=== PATIENT | female | born 1985 | race Caucasian/White ===

== ENCOUNTER 2019-12-10 22:44 | Inpatient (IN) | payer SELFPAY ==
--- NOTE | ~2019-12-10 | XR_ITS ---
EXAMINATION: XR chest 1V portable EXAM DATE: 12/11/2019 00:00 INDICATION: Weakness. TECHNIQUE: Portable AP frontal chest x-ray was obtained. There is no prior study for comparison. FINDINGS: The lungs are clear. There are no pleural effusions. The cardiomediastinal silhouette is within normal limits. There is no pneumothorax suspected. The bones and soft tissues are unremarkab le. IMPRESSION: No acute cardiopulmonary findings. Reviewed, dictated and finalized at location A.
--- NOTE | ~2019-12-10 | CT_ITS ---
EXAMINATION: CT brain wo con, CT cervical spine wo con EXAM DATE: 12/11/2019 02:20 INDICATION: Fall, head injury. TECHNIQUE: Spiral CT of the head was performed without contrast. Axial, coronal and sagittal images were reviewed. Spiral CT of the cervical spine was performed without contrast. Axial images were rev iewed. Coronal and sagittal reformatted images were also reviewed. The dose-length product (DLP) fo r this examination was 605.33 (accession [id number]), 204.91 (accession [id number]) mGy-cm. The exposure was tailored according to patient size, and iterative reconstruction (ASIR) was used as additional dose reduction technique. There is no prior study for comparison. FINDINGS: HEAD CT: There is no acute intraparenchymal hemorrhage. No evidence of intraparenchymal brain mass l esion. No evidence of acute infarction. There is no mass effect or midline shift. There is no obstru ctive hydrocephalus suspected. There are no extra-axial collections. There are no acute calvarial f ractures. The orbits are unremarkable. Soft tissue is unremarkable. The visualized sinuses and mas toid air cells are well aerated. CERVICAL CT: There is no evidence of acute cervical fracture. The odontoid process is intact. Pre- dens space is normal. Prevertebral soft tissue is normal. There are no soft tissue abnormalities id entified. There is no disc space widening or traumatic vertebral body subluxation suspected. Verteb ral body and disc heights are well-maintained. A detailed level by level evaluation of spondylosis can be added as addendum if requested. IMPRESSION: 1. No acute intracranial findings or cervical fracture. Reviewed, dictated and finalized at location A. IMPRESSION: 1. No acute intracranial findings or cervical fracture.
[2019-12-10 22:45] VITALS: BP 123/94; PULSE 86; RESP 14; TEMP 36.3; O2SAT 99
[2019-12-10 22:59] VITALS: RESP 16
--- NOTE | 2019-12-10 23:06 | ECG_ITS ---
Measurements Intervals [place] Rate: 81 P: 58 DE: 168 QRS: 91 QRSD: 94 T: 0 QT: 403 QTc: 468 Interpretive Statements SINUS RHYTHM RIGHT AXIS DEVIATION BORDERLINE ST-T WAVE ABNORMALITY- DIFFUSE LEADS BORDERLINE ECG Electronically Signed On 12-11-2019 6:56:21 CDT by Kristian Terrell D.O.
[2019-12-10] MEDS: SODIUM CHLORIDE 0.9% IV 1,000 ML 999 ML IV CONT (23:19)
[2019-12-10] MEDS: ONDANSETRON INJ 4 MG/2 ML VIAL IV PUSH (23:20)
[2019-12-10 23:21] LABS: Basophils Percent Auto 0.7 % (0.2-1.2); Eosinophils Percent Auto 0.2 % (0-4.4); Hematocrit 41.1 % (37.0-47.0); Hemoglobin 14.1 g/dL (12.0-15.0); Immature Granulocyte Absolute 0.02 K/mm3 (0.00-0.031); Immature Granulocyte Percent A 0.4 % (0-0.5); Lymphocytes Absolute Auto 2.55 K/mm3 (0.9-3.2); Lymphocytes Percent Auto 46.9 % (18.3-44.2); Mean Corpuscular HGB Conc 34.3 g/dl (32-36); Mean Corpuscular Hemoglobin 31.8 pg (26-34); Mean Corpuscular Volume 92.8 fl (80-100); Mean Platelet Volume 9.8 fl (7.4-10.4); Monocytes Absolute Auto 0.5 K/mm3 (0.1-0.6); Monocytes Percent Auto 9.4 % (2.6-8.5); Neutrophils Absolute Auto 2.3 K/mm3 (1.3-6.7); Neutrophils Percent Auto 42.4 % (45.5-73.1); Platelet Count Result 370 k/mm3 (150-375); Red Blood Count 4.43 M/mm3 (4.2-5.4); Red Cell Distribution Width 14.9 % (11.5-14.5); White Blood Count 5.4 K/mm3 (4.5-10.0)
[2019-12-10 23:23] LABS: Glucose Point of Care 105 (65-105)
[2019-12-10 23:30] VITALS: RESP 16; O2SAT 99
[2019-12-10 23:30] LABS: Partial Thromboplastin Time 28.2 SECONDS (22.3-36.8); Prothrombin Time 12.7 Seconds (11.1-14.7)
[2019-12-10 23:33] LABS: Magnesium 2.4 mg/dL (1.6-2.3); Phosphorus 3.5 mg/dL (2.5-4.5)
--- NOTE | 2019-12-10 23:39 | PC.NURSE ---
Addendum entered by Leanna Lopez RN 12/10/19 23:44: Last drink was at 20:30 tonight. pt's sister states pt was also taking Kratom and ran out. Original Note: pt presents to ER with sister with c/o ETOH and SI. pt's sister states pt's left her 2 weeks ago and she has been drinking heavily since. pt's sister states yesterday pt was found out wandering in the rain and going through the gas station's dumpster. pt's sister states they called detox program but were unable to get pt in. states they have been trying to detox pt themselves at home by, giving her a few shots every couple of hours. pt's sister states pt ran out of alcohol at the house so she started drinking her perfumes and lotions. states pt was found unconscious yesterday at home by one of her friends. pt expresses SI with a plan to cut her wrist. denies hx of SI/HI. SI precautions implemented upon arrival. hematoma noted over L eye.
[2019-12-10 23:41] LABS: Acetaminophen < 10 ug/mL (10-30); Ammonia < 9 umol/L (9-30); Salicylate < 1.0 mg/dL (2-20)
[2019-12-10 23:43] LABS: Alveolar/Arterial O2 Gradient 24.8 mmHg; Base Excess ABG 2.3 mEq/l (+/-2.0); Fractional Inspired Oxygen 21 %; HCO3 ABG 25.4 mEq/l (22.0-26.0); Oxyhemoglobin 94.5 % THb (90.0-100.0); PCO2 ABG 34.6 mmHg (35.0-45.0); PO2 ABG 83.5 mmHg (80.0-100.0); PO2 FiO2 Ratio Arterial Blood 3.98 %; Total Hemoglobin 13.5 g/dL (12.0-18.0); pH ABG 7.483 (7.350-7.450)
[2019-12-10 23:43] LABS: Alanine Aminotransferase 18 U/L (4-35); Albumin Level 4.4 g/dL (3.5-5.1); Alkaline Phosphatase 85 U/L (38-126); Anion Gap 20.4 mmol/L (7-16); Aspartate Amino Transferase 60 U/L (14-36); Bilirubin,Total 0.5 mg/dL (0.2-1.3); Blood Urea Nitrogen 13 mg/dL (7-17); Calcium 8.1 mg/dL (8.4-10.2); Carbon Dioxide 25 mmol/L (22-30); Chloride 95 mmol/L (98-107); Creatine Kinase 363 U/L (30-135); Estimated CRCL calculation 36 ml/min; Estimated Glomerular Filt Rate 43; Glucose 113 mg/dL (65-105); Potassium 3.4 mmol/L (3.4-5.0); Sodium 137 mmol/L (137-145)
[2019-12-10 23:44] LABS: Device ROOM AIR; Modified Allen's Test Pass; Site Drawn RIGHT RADIAL
--- NOTE | 2019-12-10 23:47 | ED.ALCOHOL ---
HPI - Alcohol General Chief Complaint: Alcohol Stated Complaint: alcohol,no intake, weak Time Seen by Provider: 12/10/19 23:06 Source: patient and family Mode of arrival: ambulatory History of Present Illness HPI narrative: This patient is a 34 year old female who presents for evaluation of alcohol intoxication. PAtient's sister is at bedside providing history . She states patient is going through a divorce starting 2 years ago. Patient has started binging alcohol over the past week. They found patient passed out on the floor on Saturday from alcohol intoxication so they have been monitoring her. They were able to keep patient from drinking alcohol on Saturday. She started drinking alcohol again yesterday. This morning her sister caught her drinking bottles of perfume in order to get alcohol in her system. She reports she took all the alcohol out of her place and then patient started trying to drink lotion. Her sister has been giving her alcohol in small amounts since noon to try to keep her controlled. Patient has been having nausea and vomiting but she denies any complaints currently . She does states that she wants to because she hates her herself. She has not history of depression or suicide attempt in the past. Her sister states she has not had anything to eat or drink in 5 days. Related Data Home Medications Medication Instructions Recorded Confirmed Unable to Obtain Home Medications 12/10/19 12/10/19 Allergies Allergy/AdvReac Type Severity Reaction Status Date / Time No Known Allergies Allergy Verified 12/10/19 23:58 Review of Systems Review of Systems: All systems reviewed & are unremarkable except as noted in HPI and below Constitutional: Constitutional: Denies chills, Denies fever(s) and Reports weakness Cardiovascular: Cardiovascular: Denies chest pain Respiratory: Respiratory: Denies cough, Denies dyspnea and Denies wheezing Gastrointestinal: Gastrointestinal: Denies abdominal pain, Reports nausea and Reports vomiting Neurologic: Denies headache(s) [facility] Past Medical History Medical History (Updated 12/11/19 @ 04:01 by Nikia Lai MD) Hypothyroid Social History Social History Smoking status: Never smoker Alcohol intake: current Substance use: never Gender identity (if verbalized by the patient): Female Exam Const: General: alert Nutritional Appearance: thin Orientation/consciousness: patient oriented x3 HENMT: Head: normocephalic and other (left periorbital ecchymosis) Face and sinus: face symmetric Mouth: Yes Normal oral and palatal mucosa present, Yes lip normal and Yes oropharynx normal Throat: posterior oropharynx normal, tonsils normal and uvula midline Eyes: Pupils: Equal, round and reactive pupils present EOM: EOMs intact bilaterally Chest: Chest palpation & inspection: normal inspection of the chest Resp: Effort & Inspection: normal respiratory effort and no retractions Auscultation: clear to auscultation bilaterally Cardio: Rate: regular rate Rhythm: regular rhythm Heart sounds: no murmurs GI: GI Palp: Yes Soft to palpation, No Tenderness to palpation present (GI), No Guarding due to palpation present (GI) and No Rigid due to palpation Skin: General skin exam: normal color Rashes: no rashes Neuro: General: patient oriented x3 and moves all extremities Course Reevaluation(s) Reevaluation #1: Patient has continued to have nausea and dry heaves. She is becoming agitated and wanted to get out of bed. She is stating I need to get to the vodka. Will give some ativan. Date: 12/11/19 Time: 03:58 Consultations Consultation #1: I Discussed case with DR. Tan who accepts patient and I discussed with DR. Marcus who accepts to ICU due to suicidal ideations Date: 12/11/19 Time: 03:30 Vital Signs Vital signs: Vital Signs Temperature 97.4 F L 12/10/19 22:45 Pulse Rate 86 12/10/19 22:45 Respiratory Rate 14 12/10/19 22:45 Bl
--- NOTE | 2019-12-10 23:52 | PC.NURSE ---
Called Carley (pharmacist) at poison control at this time.
[2019-12-10 23:54] LABS: Ethanol 409 mg/dL (<10)
[2019-12-11] VITALS (15 sets, daily range): BP systolic 105–136; BP diastolic 67–95; PULSE 60–92; RESP 15–28; TEMP 36.8–37.1; O2SAT 95–100; BMI 20.1
[2019-12-11 00:02] LABS: Add Urine Microscopic? NO; Appearance Urine Clear (Clear); Bilirubin Urine Negative (Negative); Blood Urine Negative (Negative); Color Urine Yellow (Yellow); Glucose Urine UA Negative (Negative); Ketones Urine Negative (Negative); Leukocyte Esterase Ur Negative LEU/UL (Negative); Nitrate Urine Negative (Negative); Protein Urine Negative (Negative); Urobilinogen Urine Negative mg/dL (<2.0)
[2019-12-11 00:04] LABS: Amphetamine Screen Urine Negative (Negative); Barbiturate Screen Urine Negative (Negative); Benzodiazepines Screen Urine Positive (Negative); Cannabinoid Screen Urine Negative (Negative); Cocaine Screen Urine Negative (Negative); Methadone Screen Urine Negative (Negative); Opiate Screen Urine Negative (Negative); Phencyclidine Screen Urine Negative (Negative)
[2019-12-11 01:09] LABS: Free T4 Free Thyroxine Reflex < 0.07 ng/dL (0.78-2.19)
[2019-12-11] MEDS: ONDANSETRON INJ 4 MG/2 ML VIAL IV PUSH ×2 (01:19→08:23)
[2019-12-11] MEDS: THIAMINE HCL 200 MG/2 ML VIAL 100 MG IV PUSH ×2 (01:20→08:23)
--- NOTE | 2019-12-11 01:29 | PC.NURSE ---
pt continues to rest on stretcher with sister at bedside. pt denies any needs/concerns. c/o nausea-medicated as stated per JUL. sitter remains at bedside, will continue to monitor pt for baseline status changes.
[2019-12-11] MEDS: PROMETHAZINE HCL 25 MG/ML AMPUL 12.5 MG IV PUSH (02:02)
[2019-12-11] MEDS: SODIUM CHLORIDE 0.9% IV 50 ML 150 ML (02:06)
--- NOTE | 2019-12-11 03:39 | PM.IMHP ---
H&P: HPI History of Present Illness Chief complaint: alcohol poisoning, suicidal ideation Narrative: This is a 34 year old female presented to the hospital with her sister axel with a history of alcohol intoxication as well as intoxication of perfume with suicidal ideation. The patient just underwent a divorce with her and has been binge drinking since then. Apparently she fell into her shower and sustained a left black eye. her family found her passed out. This morning her sister caught her drinking bottles of perfume in order to get alcohol in her system. She reports she took all the alcohol out of her place and then patient started trying to drink lotion. Her sister also reports that the patient was going through her neighbors garbage trying to find alcohol. Associated symptoms axel include nausea and vomiting. The patient verbalized that she wants to because she hates herself. Apparently the patient has not been eating any food over the past 5 days. She is also known to have hypothyroidism following a thyroidectomy from thyroid cancer and has not been taking her levothyroxine for about 3 months now. On my encounter with the patient she is intoxicated and cannot reliably answer my questions. History is obtained from her sister who is present at bedside. Review of Systems Review of Systems: ROS unobtainable: Yes unobtainable due to medical condition and unobtainable due to mental status PMFSH Past Medical History Medical History (Updated 12/11/19 @ 03:56 by Lucius Foley MD) Hypothyroid Social History Social History Gender identity (if verbalized by the patient): Female Meds Home Medications and Allergies Home Medications Medication Instructions Recorded Confirmed Type Unable to Obtain Home Medications 12/10/19 12/10/19 History Allergies Allergy/AdvReac Type Severity Reaction Status Date / Time No Known Allergies Allergy Verified 12/10/19 23:58 Vital Signs Vital Signs - 24 hr 12/10/19 22:45 12/10/19 22:59 12/10/19 23:30 Temperature 36.3 C L Pulse Rate 86 Respiratory Rate 14 16 16 Blood Pressure 123/94 H Pulse Oximetry 99 99 12/11/19 01:00 12/11/19 03:14 Temperature Pulse Rate 85 84 Respiratory Rate 16 15 Blood Pressure 121/93 H 124/90 Pulse Oximetry 97 97 Exam Const: General: confusion, intoxicated appearing, patient obtunded and tired appearing Nutritional Appearance: thin Orientation/consciousness: No oriented to person, No oriented to place, No oriented to time and patient obtunded HENMT: Head: other (ecchymosis around left eye++ ) General nose exam: Normal external nose present Mouth: Yes Normal oral and palatal mucosa present and Yes oropharynx normal Eyes: Pupils: Equal, round and reactive pupils present Neck: Neck: supple and no JVD Lymphatic: lymphadenopathy not noted Resp: Effort & Inspection: normal respiratory effort Auscultation: clear to auscultation bilaterally Cardio: Rate: regular rate Rhythm: regular rhythm Heart sounds: no murmurs GI: Inspection: normal to inspection Auscultation: normal bowel sounds Skin: General skin exam: normal color and ecchymosis (brusing noted on lower extremities++ ) Neuro: Cranial nerves: Yes Equal, round and reactive pupils present Speech: Abnormal speech present slurred Extrem: General: normal to inspection and no edema H&P: Results Labs Labs: Short CBC 12/10/19 Range/Units 23:10 WBC 5.4 (4.5-10.0) K/mm3 Hgb 14.1 (12.0-15.0) g/dL Hct 41.1 (37.0-47.0) % Plt Count 370 (150-375) k/mm3 BMP 12/10/19 23:17 Sodium 137 Potassium 3.4 Chloride 95 L Carbon Dioxide 25 BUN 13 Creatinine 1.40 H Glucose 113 H Calcium 8.1 L Cardiac Enzymes 12/10/19 Range/Units 23:17 Total Creatine Kinase 363 H (30-135) U/L Liver Function 12/10/19 Range/Units 23:17 Total Bilirubin 0.5 (0.2-1.3) mg/dL AST 60 H (14-36) U/L ALT 18
--- NOTE | 2019-12-11 04:00 | ADMGEN ---
This patient, Anastasia Card, was admitted to Intensive Care Unit-10. Patient/family oriented to hospital policies and general routines including ID bracelet, bed and alarms, visiting hours, pain management, procedures, bathroom and other care routines, personal items, smoking policy, room service/diet, and visiting hours. Valuables list has been completed. Information on how to activate the Rapid Response Team has been discussed. Patient/Family are encouraged to report perceived risks to care and to ask questions if they do not understand what they are told or what they should do.
--- NOTE | 2019-12-11 04:53 | PC.NURSE ---
Pt states she does not take any prescription medications despite the long medication list in the external medication application.
[2019-12-11] MEDS: LEVOTHYROXINE SODIUM INJ 100 MCG/5 ML VIAL 37 MCG IV PUSH (05:04)
[2019-12-11] MEDS: SODIUM CHLORIDE 0.9% IV 1,000 ML 125 ML IV CONT ×3 (05:16→21:18)
[2019-12-11 07:00] LABS: Glucose Point of Care 101 (65-105)
[2019-12-11 07:42] LABS: Glucose Point of Care 85 (65-105)
[2019-12-11] MEDS: PANTOPRAZOLE SODIUM IV 40 MG VIAL IV PUSH (08:23)
[2019-12-11] MEDS: SODIUM CHLORIDE 0.9% IV 1,000 ML 999 ML IV CONT (11:27)
[2019-12-11] MEDS: GABAPENTIN 100 MG CAPSULE PO (11:28)
[2019-12-11] MEDS: GABAPENTIN 400 MG CAPSULE 800 MG PO ×3 (14:12→19:59)
--- NOTE | 2019-12-11 15:17 | WPDCNINT ---
Assessment and Plan Assessment and plan (1) Alcohol intoxication: Code(s): F10.929 - Alcohol use, unspecified with intoxication, unspecified Status: Acute Assessment and Plan: patient with acute alcoholic intoxication, with alcohol levels of 409 - salicylate, acetaminophen levels were normal. Urine tox screen was positive for benzodiazepines - patient was binge drinking since her divorce, adjusted to cover her alcohol so if patient started drink perfumes and lotions for alcohol. - Currently on CIWA protocol, p.r.n. Ativan, and thiamine - will monitor closely for alcohol withdrawal - poison Control has been notified (2) Acute encephalopathy: Code(s): G93.40 - Encephalopathy, unspecified Status: Acute Assessment and Plan: encephalopathy has resolved, patient more awake, alert, answers to questions appropriately - continue to monitor (3) Suicidal ideation: Code(s): R45.851 - Suicidal ideations Status: Acute Assessment and Plan: according to the hospitalist note she did verbalize that she wants to , she denied suicidal behavior/ideation for me - once medically stable, will have care coordination and crisis management evaluate the patient for placement in a psychiatric unit (4) Hypothyroidism: Code(s): E03.9 - Hypothyroidism, unspecified Status: Acute Assessment and Plan: patient with history of hypothyroidism - will continue levothyroxine p.o. (5) Acute renal failure: Qualifiers: Acute renal failure type: unspecified Qualified Code(s): N17.9 - Acute kidney failure, unspecified Code(s): N17.9 - Acute kidney failure, unspecified Status: Acute Assessment and Plan: acute kidney injury with elevation in creatinine, likely secondary to poor p.o. intake - continue monitor urine output, renal function electrolytes (6) High anion gap metabolic acidosis: Code(s): E87.2 - Acidosis Status: Acute Assessment and Plan: elevated anion gap metabolic acidosis likely related to alcohol versus possible uremia secondary to ALESHA - continue to monitor Additional Plan discussed with patient in details, she requests gabapentin which was ordered, also wants to go home which I did tell her that care coordination and crisis management will evaluate her when she is more stable and they will communicate with her regarding going home or placement in a psychiatric facility Code status: Full code critical care time spent: 39 minutes Due to a high probability of clinically significant, life threatening deterioration, the patient required my highest level of preparedness to intervene emergently and I personally spent this critical care time directly and personally managing the patient. This critical care time included obtaining a history; examining the patient; pulse oximetry; ordering and review of studies; arranging urgent treatment with development of a management plan; evaluation of patient's response to treatment; frequent reassessment; and discussions with other providers. It was exclusive of separately billable procedures and treating other patients and teaching time. Please see Assessment and Plan section and the rest of the note for further information on patient assessment and treatment Cotton Grader Consult Note Consult date: 12/11/19 Time Seen: 07:14 Reason for consult: alcohol intoxication/ poisoning, suicide intent/ideation HPI: Anastasia Card is a 34 year old female with significant past medical history of bipolar disease, hypothyroidism, restless leg syndrome, peripheral neuropathy presented to the ED after she was brought in by his sister for alcohol intoxication as well as drinking perfume and lotion with suicidal ideation/ attempt. Patient has been on distress as she recently got . She has been binge drinking since then. She insulin has not been taking her medications as prescribed. Patient was als
[2019-12-11 16:29] LABS: Glucose Point of Care 89 (65-105)
[2019-12-12] VITALS (7 sets, daily range): BP systolic 114–151; BP diastolic 58–98; PULSE 60–84; RESP 12–20; TEMP 36.7–37.1; O2SAT 98–100
[2019-12-12 04:11] LABS: Basophils Percent Auto 0.8 % (0.2-1.2); Eosinophils Percent Auto 0.4 % (0-4.4); Hematocrit 29.5 % (37.0-47.0); Immature Granulocyte Absolute 0.02 K/mm3 (0.00-0.031); Immature Granulocyte Percent A 0.4 % (0-0.5); Lymphocytes Absolute Auto 1.89 K/mm3 (0.9-3.2); Lymphocytes Percent Auto 35.8 % (18.3-44.2); Mean Corpuscular HGB Conc 33.9 g/dl (32-36); Mean Corpuscular Hemoglobin 32.5 pg (26-34); Mean Corpuscular Volume 95.8 fl (80-100); Monocytes Absolute Auto 0.7 K/mm3 (0.1-0.6); Monocytes Percent Auto 12.3 % (2.6-8.5); Neutrophils Absolute Auto 2.7 K/mm3 (1.3-6.7); Neutrophils Percent Auto 50.3 % (45.5-73.1); Platelet Count Result 227 k/mm3 (150-375); Red Blood Count 3.08 M/mm3 (4.2-5.4); Red Cell Distribution Width 15.2 % (11.5-14.5); White Blood Count 5.3 K/mm3 (4.5-10.0)
[2019-12-12 04:30] LABS: Lactic Acid 1.1 mmol/L (0.7-2.1)
[2019-12-12 04:33] LABS: Alanine Aminotransferase 18 U/L (4-35); Alkaline Phosphatase 52 U/L (38-126); Anion Gap 7.1 mmol/L (7-16); Aspartate Amino Transferase 46 U/L (14-36); Bilirubin,Total 0.4 mg/dL (0.2-1.3); Blood Urea Nitrogen 12 mg/dL (7-17); Carbon Dioxide 28 mmol/L (22-30); Chloride 102 mmol/L (98-107); Estimated CRCL calculation 50 ml/min; Estimated Glomerular Filt Rate 51; Glucose 82 mg/dL (65-105); Magnesium 1.5 mg/dL (1.6-2.3); Phosphorus 2.4 mg/dL (2.5-4.5); Potassium 3.1 mmol/L (3.4-5.0); Sodium 134 mmol/L (137-145)
[2019-12-12] MEDS: SODIUM CHLORIDE 0.9% IV 1,000 ML 125 ML IV CONT (05:31)
[2019-12-12] MEDS: LEVOTHYROXINE SODIUM 75 MCG TABLET PO (05:34)
[2019-12-12] MEDS: diazePAM 5 MG TABLET 10 MG PO ×3 (08:37→16:34)
[2019-12-12] MEDS: PREGABALIN 75 MG CAPSULE PO ×2 (08:37→16:34)
[2019-12-12] MEDS: GABAPENTIN 400 MG CAPSULE 800 MG PO ×4 (08:37→22:14)
[2019-12-12] MEDS: THIAMINE HCL 100 MG TABLET PO (09:09)
[2019-12-12] MEDS: MAGNESIUM SULF 4 GM/WATER100ML 4 GM/100 ML BAG IVPB (09:09)
[2019-12-12] MEDS: POTASSIUM CHLORIDE 20 MEQ PACKET (FOR LIQUID) 40 MEQ PO ×2 (09:10→16:35)
[2019-12-12] MEDS: FOLIC ACID 1 MG TABLET PO (09:10)
[2019-12-12] MEDS: LEVOTHYROXINE SODIUM 25 MCG TABLET PO (09:10)
--- NOTE | 2019-12-12 09:35 | PC.NURSE ---
Spoke with [place] [facility], patient is clear from their standpoint
[2019-12-12 10:00] LABS: Ethanol < 10 mg/dL (<10)
[2019-12-12 10:10] LABS: Beta HCG Quantitative < 2.39 mIU/ML
--- NOTE | 2019-12-12 11:56 | WPDINTPN ---
Progress Note: A&P Assessment and Plan (1) Alcohol intoxication: Code(s): F10.929 - Alcohol use, unspecified with intoxication, unspecified Status: Acute Assessment and Plan: patient with acute alcoholic intoxication, with alcohol levels of 409 - salicylate, acetaminophen levels were normal. Urine tox screen was positive for benzodiazepines - patient was binge drinking since her divorce, When alcohol was taken away by her sister, patient started drink perfumes and lotions for alcohol. - Currently on CIWA protocol, p.r.n. Ativan, and thiamine And folate - will monitor closely for alcohol withdrawal. She has been requiring minimum Ativan. - poison Control has been notified with no specific recommendations. (2) Acute encephalopathy: Code(s): G93.40 - Encephalopathy, unspecified Status: Acute Assessment and Plan: encephalopathy has resolved, patient more awake, alert, answers to questions appropriately - continue to monitor (3) Suicidal ideation: Code(s): R45.851 - Suicidal ideations Status: Acute Assessment and Plan: according to the hospitalist note she did verbalize that she wants to , she denied suicidal behavior/ideation for me she is medically stable and clear to have care coordination and crisis management evaluate the patient for placement in a psychiatric unit (4) Hypothyroidism: Code(s): E03.9 - Hypothyroidism, unspecified Status: Acute Assessment and Plan: patient with history of hypothyroidism - will continue levothyroxine p.o. (5) Acute renal failure: Qualifiers: Acute renal failure type: unspecified Qualified Code(s): N17.9 - Acute kidney failure, unspecified Code(s): N17.9 - Acute kidney failure, unspecified Status: Acute Assessment and Plan: acute kidney injury with elevation in creatinine, likely secondary to poor p.o. intake - continue monitor urine output, renal function electrolytes renal parameters has improved now. stop IV fluids now. She has been eating well. Her diet has been advanced to regular diet. Will replace magnesium, potassium and phosphate today as the levels were low. (6) High anion gap metabolic acidosis: Code(s): E87.2 - Acidosis Status: Acute Assessment and Plan: elevated anion gap metabolic acidosis likely related to alcohol versus possible uremia secondary to ALESHA. It has resolved now. - continue to monitor Additional Plan I will resume her home medication which include pregabalin and Valium 10 mg 3 times a day. She is medically clear and stable and care coordination and crisis team will evaluate the patient for possible placement in a psych facility. She has been downgraded to floor status today. DVT prophylaxis with SCD boot GI prophylaxis not indicated Code status: Full code Subjective Date/time seen: 12/12/19 11:56 No significant overnight events were reported. Few of the blood pressure reading has been on the higher side. She has required 3 doses of 1 mg Ativan each for anxiety. Magnesium and phosphate was low today which has been repleted. Production was repeated as well. She is feeling much better now. She denied have any significant symptoms. Review of Systems Review of Systems: All systems reviewed & are unremarkable except as noted in HPI and below Exam Const: General: comfortable and no acute distress HENMT: Mouth: Yes moist mucous membranes Eyes: Sclera: sclerae normal Pupils: Equal, round and reactive pupils present Neck: Neck: supple and no JVD Resp: Effort & Inspection: normal respiratory effort Auscultation: clear to auscultation bilaterally Cardio: Rate: regular rate Rhythm: regular rhythm : Other: deferred Skin: Other: patient has a left black eye Neuro: Cranial nerves: Yes Equal, round and reactive pupils present Other: patient is awake
--- NOTE | 2019-12-12 15:55 | PM.IMPN ---
Progress Note: A&P Assessment and Plan (1) Acute encephalopathy: Code(s): G93.40 - Encephalopathy, unspecified Status: Acute Assessment and Plan: Secondary to alcohol intoxication. Admit to ICU, telemetry, NPO, Neurochecks. Drawer Maker, Dr. Marcus has been consulted by ER provider. 12/12/19 15:55 patient is a 34-year-old female with history of bipolar, major depression, hyperthyroid patient recently got never seen patient has been quite depressed and yesterday see became quite intoxicated start drinking perfume and lotions in an attempt to commit suicide, patient was brought to ER by her sister daytime alcohol level was 409, since then patient is being hydrate being monitor today patient was seen bods developer and patient clinically has improved and stable to be evaluate by crisis team for inpatient psychiatry care, patient was seen by crisis team has recommended the patient will benefit from inpatient psychiatry care pending acceptance from the psychiatry hospital, currently patient denies any complaint of chest pain shortness abdominal pain nausea or vomiting (2) Alcohol intoxication: Code(s): F10.929 - Alcohol use, unspecified with intoxication, unspecified Status: Acute Assessment and Plan: [facility] protocol. Thiamine IV daily. Lorazepam IV withdrawal prophylaxis. (3) Poisoning: Status: Acute Assessment and Plan: Acute poisoning from consumption of perfume and lotions. Poison control has been consulted. (4) Suicidal ideation: Code(s): R45.851 - Suicidal ideations Status: Acute Assessment and Plan: One on One sitter. harm precautions. Crisis intervention carolyn m. (5) Hypothyroidism: Code(s): E03.9 - Hypothyroidism, unspecified Status: Acute Assessment and Plan: Untreated hypothyroidism. Levothyroxine IV. (6) Acute renal failure: Qualifiers: Acute renal failure type: unspecified Qualified Code(s): N17.9 - Acute kidney failure, unspecified Code(s): N17.9 - Acute kidney failure, unspecified Status: Acute Assessment and Plan: Likely secondary to poor PO intake of fluids. IV hydration. Monitor renal function. Avoid nephrotoxic agents. Renally dose medications. (7) High anion gap metabolic acidosis: Code(s): E87.2 - Acidosis Status: Acute Assessment and Plan: May be secondary to alchoholism vs. acute renal failure. Monitor acid-base status. Continue IV hydration. Additional Plan I suspect the patient will likely need at least 2 nights of inpatient medical therapy for her acute encephalopathy, alcohol intoxication, and comorbid conditions listed above. I have spent over 34 minutes of critical care time with this patient tonight. Date of service was 12/11/2019 at 3 am. Subjective Date/time seen: 12/12/19 15:55 patient is a 34-year-old female with history of bipolar, major depression, hyperthyroid patient recently got never seen patient has been quite depressed and yesterday see became quite intoxicated start drinking perfume and lotions in an attempt to commit suicide, patient was brought to ER by her sister daytime alcohol level was 409, since then patient is being hydrate being monitor today patient was seen bods developer and patient clinically has improved and stable to be evaluate by crisis team for inpatient psychiatry care, patient was seen by crisis team has recommended the patient will benefit from inpatient psychiatry care pending acceptance from the psychiatry hospital, currently patient denies any complaint of chest pain shortness abdominal pain nausea or vomiting Review of Systems Review of Systems: All systems reviewed & are unremarkable except as noted in HPI and below Exam Const: General: no acute distress and uncomfortable Other: appears quite depressed HENMT: General nose exam: Normal nares present Mouth: Yes moist mucous membranes Eyes: Sclera:
--- NOTE | 2019-12-12 21:05 | PC.NURSE ---
Advised by laboratory that COVID test failed and will be rerun on 12/14/19. No need to re-swab patient.
[2019-12-13 03:09] VITALS: BP 126/96; PULSE 72; RESP 16; O2SAT 99
[2019-12-13 04:09] LABS: Hematocrit 32.4 % (37.0-47.0); Hemoglobin 10.9 g/dL (12.0-15.0); Mean Corpuscular HGB Conc 33.6 g/dl (32-36); Mean Corpuscular Hemoglobin 32.2 pg (26-34); Mean Corpuscular Volume 95.9 fl (80-100); Mean Platelet Volume 9.9 fl (7.4-10.4); Platelet Count Result 234 k/mm3 (150-375); Red Blood Count 3.38 M/mm3 (4.2-5.4); Red Cell Distribution Width 15.2 % (11.5-14.5); White Blood Count 5.9 K/mm3 (4.5-10.0)
[2019-12-13 04:27] LABS: Anion Gap 6.3 mmol/L (7-16); Blood Urea Nitrogen 11 mg/dL (7-17); Calcium 7.9 mg/dL (8.4-10.2); Carbon Dioxide 28 mmol/L (22-30); Chloride 101 mmol/L (98-107); Estimated CRCL calculation 62 ml/min; Estimated Glomerular Filt Rate > 60; Glucose 101 mg/dL (65-105); Phosphorus 2.2 mg/dL (2.5-4.5); Potassium 3.3 mmol/L (3.4-5.0); Sodium 132 mmol/L (137-145)
[2019-12-13] MEDS: LEVOTHYROXINE SODIUM 75 MCG TABLET PO (06:22)
[2019-12-13 08:00] VITALS: BP 126/86; BP 126/96; PULSE 64; PULSE 72; PULSE 84; RESP 16; TEMP 37; O2SAT 100; O2SAT 99
[2019-12-13] MEDS: PREGABALIN 75 MG CAPSULE PO ×2 (09:25→17:48)
[2019-12-13] MEDS: diazePAM 5 MG TABLET 10 MG PO ×3 (09:26→17:48)
[2019-12-13] MEDS: THIAMINE HCL 100 MG TABLET PO (09:27)
[2019-12-13] MEDS: GABAPENTIN 400 MG CAPSULE 800 MG PO ×4 (09:27→19:58)
[2019-12-13] MEDS: FOLIC ACID 1 MG TABLET PO (09:28)
[2019-12-13] MEDS: POTASSIUM CHLORIDE 20 MEQ TABLET 40 MEQ PO (09:29)
[2019-12-13 12:00] VITALS: BP 126/96; PULSE 64
--- NOTE | 2019-12-13 12:18 | PM.IMPN ---
Progress Note: A&P Assessment and Plan (1) Acute encephalopathy: Code(s): G93.40 - Encephalopathy, unspecified Status: Acute Assessment and Plan: Secondary to alcohol intoxication. Admit to ICU, telemetry, NPO, Neurochecks. Nuclear Test Technician, Dr. Marcus has been consulted by ER provider. 12/13/19 12:18 patient is a 34-year-old female with history of bipolar, major depression, hyperthyroid patient recently got never seen patient has been quite depressed and yesterday see became quite intoxicated start drinking perfume and lotions in an attempt to commit suicide, patient was brought to ER by her sister daytime alcohol level was 409, since then patient is being hydrate being monitor today patient was seen bobbin cleaner and patient clinically has improved and stable to be evaluate by crisis team for inpatient psychiatry care, patient was seen by crisis team has recommended the patient will benefit from inpatient psychiatry care pending acceptance from the psychiatry hospital, currently patient denies any complaint of chest pain shortness abdominal pain nausea or vomiting, patient has history of restless leg syndrome and complaint of pain in her legs. patient is on gabapentin and Lyrica. (2) Alcohol intoxication: Code(s): F10.929 - Alcohol use, unspecified with intoxication, unspecified Status: Acute Assessment and Plan: CIWY-MT protocol. Thiamine IV daily. Lorazepam IV withdrawal prophylaxis. (3) Poisoning: Status: Acute Assessment and Plan: Acute poisoning from consumption of perfume and lotions. Poison control has been consulted. (4) Suicidal ideation: Code(s): R45.851 - Suicidal ideations Status: Acute Assessment and Plan: One on One sitter. harm precautions. Crisis intervention carolyn m. (5) Hypothyroidism: Code(s): E03.9 - Hypothyroidism, unspecified Status: Acute Assessment and Plan: Untreated hypothyroidism. Levothyroxine IV. (6) Acute renal failure: Qualifiers: Acute renal failure type: unspecified Qualified Code(s): N17.9 - Acute kidney failure, unspecified Code(s): N17.9 - Acute kidney failure, unspecified Status: Acute Assessment and Plan: Likely secondary to poor PO intake of fluids. IV hydration. Monitor renal function. Avoid nephrotoxic agents. Renally dose medications. (7) High anion gap metabolic acidosis: Code(s): E87.2 - Acidosis Status: Acute Assessment and Plan: May be secondary to alchoholism vs. acute renal failure. Monitor acid-base status. Continue IV hydration. Additional Plan I suspect the patient will likely need at least 2 nights of inpatient medical therapy for her acute encephalopathy, alcohol intoxication, and comorbid conditions listed above. I have spent over 34 minutes of critical care time with this patient tonight. Date of service was 12/11/2019 at 3 am. Subjective Date/time seen: 12/13/19 12:18 patient is a 34-year-old female with history of bipolar, major depression, hyperthyroid patient recently got never seen patient has been quite depressed and yesterday see became quite intoxicated start drinking perfume and lotions in an attempt to commit suicide, patient was brought to ER by her sister daytime alcohol level was 409, since then patient is being hydrate being monitor today patient was seen bobbin cleaner and patient clinically has improved and stable to be evaluate by crisis team for inpatient psychiatry care, patient was seen by crisis team has recommended the patient will benefit from inpatient psychiatry care pending acceptance from the psychiatry hospital, currently patient denies any complaint of chest pain shortness abdominal pain nausea or vomiting, patient has history of restless leg syndrome and complaint of pain in her legs. patient is on gabapentin and Lyrica. Objective Data Vital Signs Vital Signs: Vital Signs - 24 hr
[2019-12-13 16:00] VITALS: BP 128/96; PULSE 72; RESP 18; TEMP 36.9; O2SAT 97
[2019-12-14] VITALS: BP 130/98; PULSE 86; RESP 14; TEMP 36.8; O2SAT 100
[2019-12-14 04:34] LABS: Hematocrit 32.5 % (37.0-47.0); Hemoglobin 10.8 g/dL (12.0-15.0); Mean Corpuscular HGB Conc 33.2 g/dl (32-36); Mean Corpuscular Volume 96.4 fl (80-100); Mean Platelet Volume 9.9 fl (7.4-10.4); Platelet Count Result 237 k/mm3 (150-375); Red Blood Count 3.37 M/mm3 (4.2-5.4); Red Cell Distribution Width 15.3 % (11.5-14.5); White Blood Count 5.1 K/mm3 (4.5-10.0)
[2019-12-14 04:54] LABS: Anion Gap 6.3 mmol/L (7-16); Blood Urea Nitrogen 9 mg/dL (7-17); Calcium 8.4 mg/dL (8.4-10.2); Carbon Dioxide 28 mmol/L (22-30); Chloride 103 mmol/L (98-107); Estimated CRCL calculation 68 ml/min; Estimated Glomerular Filt Rate > 60; Glucose 96 mg/dL (65-105); Magnesium 1.7 mg/dL (1.6-2.3); Phosphorus 3.6 mg/dL (2.5-4.5); Potassium 3.3 mmol/L (3.4-5.0); Sodium 134 mmol/L (137-145)
[2019-12-14] MEDS: LEVOTHYROXINE SODIUM 75 MCG TABLET PO (06:37)
[2019-12-14 08:00] VITALS: BP 128/102; PULSE 80; RESP 18; TEMP 36.7; O2SAT 100
[2019-12-14] MEDS: diazePAM 5 MG TABLET 10 MG PO ×3 (08:07→17:13)
[2019-12-14] MEDS: PREGABALIN 75 MG CAPSULE PO ×2 (08:07→17:13)
[2019-12-14] MEDS: FOLIC ACID 1 MG TABLET PO (08:08)
[2019-12-14] MEDS: GABAPENTIN 400 MG CAPSULE 800 MG PO ×3 (08:08→17:14)
[2019-12-14] MEDS: THIAMINE HCL 100 MG TABLET PO (08:08)
[2019-12-14] MEDS: POTASSIUM CHLORIDE 20 MEQ TABLET 40 MEQ PO (08:39)
[2019-12-14 12:00] LABS: SARS-CoV-2 RNA PCR Negative
[2019-12-14 12:00] LABS: SARS-CoV-2 RNA PCR Negative
[2019-12-14] MEDS: LIDOCAINE 5% PATCH 1 PATCH TRANSDERM ×2 (12:07)
--- NOTE | 2019-12-14 13:20 | PM.TDS ---
Transfer Discharge Sum: Prov Provider Date of admission: 12/11/19 10:10 Primary care physician: Talha Blount, Admitting clinician: Lucius Foley MD Consults: 12/11/19 03:20 Consult to Physician Routine Comment: Consulting Provider: Sen Marcus Reason for consultation: suicidal ideation Has provider been notified: Yes 12/11/19 04:01 Care Coordination Consult Routine Comment: Reason for Consult:: Abuse DS: Admitting Diagnosis Admitting Diagnosis Admitting Diagnosis: Encephalopathy, unspecified DS: Discharge Diagnosis Discharge Diagnosis (1) Suicidal ideation: Code(s): R45.851 - Suicidal ideations Status: Acute Assessment and Plan: Anastasia Card is a 34 year old female patient is a 34-year-old female with history of bipolar, major depression, hyperthyroid patient recently got never seen patient has been quite depressed and yesterday see became quite intoxicated start drinking perfume and lotions in an attempt to commit suicide, patient was brought to ER by her sister daytime alcohol level was 409, since then patient is being hydrate being monitor today patient was seen patent legal assistant and patient clinically has improved and stable to be evaluate by crisis team for inpatient psychiatry care, patient was seen by crisis team has recommended the patient will benefit from inpatient psychiatry care pending acceptance from the psychiatry hospital, currently patient denies any complaint of chest pain shortness abdominal pain nausea or vomiting, patient has history of restless leg syndrome and complaint of pain in her legs. patient is on gabapentin and Lyrica., patient was evaluated by crisis team and recommended inpatient psychiatry care, patient is been accepted is psychiatry hospital will transfer the patient today. Transfer Discharge Sum: Med Medications Active and Home Medications: Home Medications buprenorphine HCl [Belbuca] 150 mcg BUCCAL BID 12/11/19 [History Confirmed 12/11/19] diazepam 10 mg PO TID 12/11/19 [History Confirmed 12/11/19] gabapentin 800 mg PO QID 12/11/19 [History Confirmed 12/11/19] levothyroxine [Levoxyl] 25 mcg PO DAILY 12/11/19 [History Confirmed 12/11/19] levothyroxine [Levoxyl] 75 mcg PO DAILY 12/11/19 [History Confirmed 12/11/19] pregabalin 75 mg PO BID 12/11/19 [History Confirmed 12/11/19] Active Medications Diazepam (Valium Po) 10 mg PO TID [facility] Last Admin: 12/14/19 12:18 Dose: 10 mg Documented by: Folic Acid (Folic Acid) 1 mg PO DAILY [facility] Last Admin: 12/14/19 08:08 Dose: 1 mg Documented by: Gabapentin (Neurontin) 800 mg PO QID [facility] Last Admin: 12/14/19 12:18 Dose: 800 mg Documented by: Levothyroxine Sodium (Synthroid) 75 mcg PO DAILY@0630 [facility] Last Admin: 12/14/19 06:37 Dose: 75 mcg Documented by: Lidocaine (Lidoderm) 1 patch TRANSDERM DAILY [facility] Last Admin: 12/14/19 12:07 Dose: 1 patch Documented by: Lidocaine (Lidoderm) 1 patch TRANSDERM DAILY [facility] Last Admin: 12/14/19 12:07 Dose: 1 patch Documented by: Lorazepam (Ativan Inj) 1 mg IV PUSH Q4H PRN PRN Reason: Withdrawal Last Admin: 12/12/19 04:16 Dose: 1 mg Documented by: Ondansetron HCl (Zofran Inj) 4 mg IV PUSH Q4H PRN PRN Reason: Nausea Last Admin: 12/11/19 08:23 Dose: 4 mg Documented by: Pregabalin (Lyrica) 75 mg PO BID [facility] Last Admin: 12/14/19 08:07 Dose: 75 mg Documented by: Thiamine HCl (Vitamin B-1) 100 mg PO QAM [facility] Last Admin: 12/14/19 08:08 Dose: 100 mg Documented by: Transfer Discharge Sum: Hosp Hospital Course Hospital course: Anastasia Card is a 34 year old female patient is a 34-year-old female with history of bipolar, major depression, hyperthyroid patient recently got never seen patient has been quite depressed and yesterday see became quite intoxicated start drinking perfume and lotions in an attempt to commit suicide, patient was brought to ER by her sister daytime alcohol level was 409, sin
[2019-12-14 14:13] LABS: Free T4 Free Thyroxine Reflex 0.15 ng/dL (0.78-2.19)
--- NOTE | 2019-12-14 17:18 | PC.NURSE ---
[facility], dc instructions sent with all personal belongings set with open hearth laborer
== END 2019-12-14 17:25 | DRG 897 ==
LOC: ANHED 12-11 03:21 → ANHICU 12-11 03:32
PROVIDERS: Internal Medicine; Internal Medicine Critical Care Medicine; Admitting Provider Family Medicine; Emergency Provider General Practice; PCP Internal Medicine; Visit Provider Family Medicine
DX: F10.929 Alcohol use, unspecified with intoxication, unspecified (principal); G93.49 Other encephalopathy; N17.9 Acute kidney failure, unspecified; E87.2 Acidosis; R45.851 Suicidal ideations; Z20.828 Contact with and (suspected) exposure to other viral communicable diseases; Y90.8 Blood alcohol level of 240 mg/100 ml or more; E89.0 Postprocedural hypothyroidism; F31.9 Bipolar disorder, unspecified; G25.81 Restless legs syndrome; G62.9 Polyneuropathy, unspecified; S00.12XA Contusion of left eyelid and periocular area, initial encounter; W19.XXXA Unspecified fall, initial encounter; Z63.5 Disruption of family by separation and divorce; Z85.850 Personal history of malignant neoplasm of thyroid
CPT/HCPCS: 36415; 36600; 70450; 71045; 72125; 80048; 80053; 80307; 81003; 81025; 82140; 82533; 82550; 82805; 82948; 83605; 83735; 83930; 84100; 84439; 84443; 84702; 85025; 85027; 85610; 85730; 87635; 93005; 96361; 96374; 96375; 96376; 99285; A9270; C9113; C9803; G0378; J0131; J2060; J2405; J2550; J3411; J3475; J7030; U0003

== ENCOUNTER 2020-01-06 21:54 | Inpatient (IN) | payer SELFPAY ==
[2020-01-06 21:53] VITALS: BP 109/83; PULSE 128; RESP 29; O2SAT 100
--- NOTE | 2020-01-06 21:53 | PC.NURSE ---
pt is unable to answer questions, except to say no. pt answers no to knowing her name, birthdate, where she is at, or what happen. pt is able to yell in pain when a straight cath was done and when a iv was placed.
--- NOTE | 2020-01-06 22:00 | ECG_ITS ---
Measurements Intervals Bates Rate: 126 P: 54 PA: 120 QRS: 79 QRSD: 73 T: -20 QT: 283 QTc: 411 Interpretive Statements SINUS TACHYCARDIA DELAYED PRECORDIAL R/S TRANSITION NONSPECIFIC T-WAVE ABNORMALITY- INFERIOR LEADS ABNORMAL ECG Electronically Signed On 01-07-2020 7:30:55 CDT by Kristian Terrell D.O.
--- NOTE | 2020-01-06 22:28 | PC.NURSE ---
2220 Spoke with TONI Baker at [place] [facility]. She stated monitor for for GI symptoms, n/v/d. Most are alcohol based products. Supportive care, , anti-emetics if required. Trazedone may cause sleepyness. They will call back to check on patient status. Per pt family pt ingested an unknown amt of: Biore witch babs face Equate Medicated face wash Kb Jeanette beach blonde sea waves sea salt spray Raina Hydra fresh toner Nutrigena Pore refining toner Purell Hand assistant financial accountant Salon Care Developer for michelle CLean & clear deep cleansing toner Bath & Body works hand assistant financial accountant Myrna dish soap Bottle of body splash Trazedone prescribed 12/21/19, possible 15 taken today, unsure per family. Bag of bottles family brought in labeled with pt name & locked up.
[2020-01-06 22:37] LABS: Basophils Absolute Auto 0.1 K/mm3 (0.0-0.1); Basophils Percent Auto 0.3 % (0.2-1.2); Hematocrit 46.6 % (37.0-47.0); Hemoglobin 15.8 g/dL (12.0-15.0); Immature Granulocyte Absolute 0.11 K/mm3 (0.00-0.031); Immature Granulocyte Percent A 0.7 % (0-0.5); Lymphocytes Absolute Auto 0.78 K/mm3 (0.9-3.2); Lymphocytes Percent Auto 4.7 % (18.3-44.2); Mean Corpuscular HGB Conc 33.9 g/dl (32-36); Mean Corpuscular Hemoglobin 32.9 pg (26-34); Mean Corpuscular Volume 97.1 fl (80-100); Mean Platelet Volume 10.9 fl (7.4-10.4); Monocytes Absolute Auto 0.9 K/mm3 (0.1-0.6); Monocytes Percent Auto 5.3 % (2.6-8.5); Neutrophils Absolute Auto 14.7 K/mm3 (1.3-6.7); Platelet Count Result 368 k/mm3 (150-375); Red Cell Distribution Width 15.4 % (11.5-14.5); White Blood Count 16.5 K/mm3 (4.5-10.0)
[2020-01-06 22:43] LABS: Add Urine Microscopic? YES; Appearance Urine Clear (Clear); Bilirubin Urine Negative (Negative); Blood Urine Negative (Negative); Color Urine Yellow (Yellow); Glucose Urine UA Negative (Negative); Ketones Urine 2+ mg/dL (Negative); Leukocyte Esterase Ur Negative LEU/UL (Negative); Mucus Urine Rare /lpf; Nitrate Urine Negative (Negative); Protein Urine 2+ mg/dL (Negative); RBC Urine 0-2 /hpf (0-2); Specific Grav Ur 1.024 (1.001-1.035); Squamous Epithelial Cell Urine Occasional /hpf (Few); Urobilinogen Urine Negative mg/dL (<2.0)
[2020-01-06 22:45] LABS: Alanine Aminotransferase 58 U/L (4-35); Albumin Level 5.1 g/dL (3.5-5.1); Alkaline Phosphatase 102 U/L (38-126); Anion Gap 29 mmol/L (8-16); Aspartate Amino Transferase 101 U/L (14-36); Bilirubin,Total 0.3 mg/dL (0.2-1.3); Blood Urea Nitrogen 22 mg/dL (7-17); Calcium 8.7 mg/dL (8.4-10.2); Carbon Dioxide 13 mmol/L (22-30); Chloride 96 mmol/L (98-107); Estimated Glomerular Filt Rate 46; Glucose 98 mg/dL (65-105); Potassium 4.6 mmol/L (3.4-5.0); Sodium 138 mmol/L (137-145)
[2020-01-06 22:48] LABS: Ethanol 176 mg/dL (<10)
[2020-01-06 22:53] LABS: Amphetamine Screen Urine Negative (Negative); Barbiturate Screen Urine Negative (Negative); Benzodiazepines Screen Urine Positive (Negative); Cannabinoid Screen Urine Negative (Negative); Cocaine Screen Urine Negative (Negative); Methadone Screen Urine Negative (Negative); Opiate Screen Urine Negative (Negative); Phencyclidine Screen Urine Negative (Negative)
[2020-01-06] MEDS: SODIUM CHLORIDE 0.9% IV 1,000 ML 999 ML IV CONT (23:23)
--- NOTE | 2020-01-06 23:26 | PC.NURSE ---
pt sister arrived around 15 mins after patient. sister states patient was seen here in November for a similar issue. pt was admitted to our icu, pt sister states she had to stay with her while she was here because the patient tried to eat a butt wipe . per sister pt was then transferred to a psych facility, which she stayed at for a week and then went to a rehabilitation center within the same organization. per sister pt got home on Saturday, drank a bottle of perfume, bought some alcohol, which her son found and dumped out. per sister last night patient drank a bottle of luis dish soap.
[2020-01-07] VITALS (12 sets, daily range): BP systolic 95–132; BP diastolic 63–88; PULSE 84–145; RESP 16–25; TEMP 36.3–37.5; O2SAT 95–100; BMI 18.8
[2020-01-07] MEDS: SODIUM CHLORIDE 0.9% IV 1,000 ML 999 ML IV CONT (00:09)
[2020-01-07 01:05] LABS: Acetaminophen < 10 ug/mL (10-30)
[2020-01-07 01:09] LABS: Salicylate 25.8 mg/dL (2-20)
--- NOTE | 2020-01-07 01:21 | PC.NURSE ---
pt is awake and asking for a drink. pt is agitated and trying to remove her iv. pt is taking off cardiac leads, bandages, her armband and throwing them on the floors. pt is reoriented to place, time and situation.
--- NOTE | 2020-01-07 01:23 | ED.PSYCH ---
HPI - Psych General Chief Complaint: Psychiatric Symptoms Stated Complaint: si Time Seen by Provider: 01/06/20 22:26 History of Present Illness HPI Narrative: Patient is a 34-year-old female who presents ER with potential overdose. Patient just got alcohol rehab. She was at her home and was drinking. Hand technology engineer then also ingested a bunch of medications that contained salicylic acid including Neutrogena pore refining toner, cleaning clear deep cleaning toner, L'Oreal hydra fresh toner, and Kb Adelina bleach blond sea wave sea salt spray. Patient vomited at home. History obtained from patient's sister. Patient intoxicated. Not willing to talk at this time. Patient also ingest purell hand technology engineer and bath and bodyworks hand technology engineer. Related Data Home Medications Medication Instructions Recorded Confirmed buprenorphine HCl [Belbuca] 150 mcg BUCCAL BID 12/11/19 12/11/19 diazepam 10 mg PO TID 12/11/19 12/11/19 gabapentin 800 mg PO QID 12/11/19 12/11/19 levothyroxine [Levoxyl] 25 mcg PO DAILY 12/11/19 12/11/19 levothyroxine [Levoxyl] 75 mcg PO DAILY 12/11/19 12/11/19 pregabalin 75 mg PO BID 12/11/19 12/11/19 Allergies Allergy/AdvReac Type Severity Reaction Status Date / Time No Known Allergies Allergy Verified 12/10/19 23:58 Review of Systems Review of Systems: ROS unobtainable: Yes unobtainable due to medical condition PMFSH Past Medical History Medical History (Updated 01/07/20 @ 03:11 by Cesar Kim MD) Anxiety Hypothyroid Surgical History Surgical History (Updated 01/07/20 @ 03:08 by Cesar Kim MD) H/O: hysterectomy Family History Family History (Updated 01/07/20 @ 02:55 by Gabino Dejesus RN) Daughter Acute myocardial infarction Social History Social History Smoking status: Never smoker Alcohol intake: former Substance use: never Gender identity (if verbalized by the patient): Female Spiritual care concerns: No Exam Narrative: Exam Narrative: GENERAL: Disheveled/intoxicated-appearing, well-nourished, and in no acute distress. HEAD: Normocephalic, atraumatic. EYES: PERRL and EOMI. ENT: Mucous membranes moist. CHEST: Clear to auscultation. No respiratory distress. HEART: Tachycardic and regular. Normal peripheral pulses. ABDOMEN: Soft, nontender, nondistended. EXTREMITIES: Normal range of motion. No edema. SKIN: Warm, dry, no rash. NEURO: Awake alert, intoxicated, responds to noxious stimuli. Course Course Emergency Course: Patient now awake alert and oriented x3. She denies SI/HI however patient sister is stable and patient verbalized that she wanted to go to sleep and never wake up again. Admit to hospitalist. ICU consulted, will start bicarb drip. Vital Signs Vital signs: Vital Signs Pulse Rate 128 H 01/06/20 21:53 Respiratory Rate 29 H 01/06/20 21:53 Blood Pressure 109/83 01/06/20 21:53 Pulse Oximetry 100 01/06/20 21:53 Pulse Rate 123 H 01/07/20 01:40 Respiratory Rate 20 01/07/20 01:40 Blood Pressure 120/73 01/07/20 01:40 Pulse Oximetry 100 01/07/20 01:40 MDM - Psych Lab Data Result diagrams: 01/06/20 22:17 01/06/20 22:17 Labs: Lab Results 01/06/20 01/06/20 01/06/20 Range/Units 22:16 22:16 22:17 WBC 16.5 H (4.5-10.0) K/mm3 RBC 4.80 (4.2-5.4) M/mm3 Hgb 15.8 H D (12.0-15.0) g/dL Hct 46.6 (37.0-47.0) % MCV 97.1 (80-100) fl MCH 32.9 (26-34) pg MCHC 33.9 (32-36) g/dl RDW 15.4 H (11.5-14.5) % Plt Count 368 D (150-375) k/mm3 MPV 10.9 H (7.4-10.4) fl Immature Gran % (Auto) 0.7 H (0-0.5) % Neut % (Auto) 89.0 H (45.5-73.1) % Lymph % (Auto) 4.7 L (18.3-44.2) % [place] % (Auto) 5.3 (2.6-8.5) % Eos % (Auto) 0.0 (0-4.4) % Baso % (Auto) 0.3 (0.2-1.2) % Lymph # (Auto) 0.78 L (0.9-3.2) K/mm3 [place] # (Auto) 0.9 H (0.1-0.6) K/mm3 Eos # (Auto) 0.0 (0-0.3) K/mm3 Baso # (Auto) 0.1 (0.0-0.1) K/
[2020-01-07] MEDS: SODIUM BICARBONATE 8.4% 100 MEQ in DEXTROSE 5% 1,000 ML 1,000 ML 50 MEQ IV CONT (01:55)
--- NOTE | 2020-01-07 02:51 | PC.NURSE ---
This patient, Anastasia Card, was admitted to Intensive Care Unit-8. Patient/family oriented to hospital policies and general routines including ID bracelet, bed and alarms, visiting hours, pain management, procedures, bathroom and other care routines, personal items, smoking policy, room service/diet, and visiting hours. Valuables list has been completed. Information on how to activate the Rapid Response Team has been discussed. Patient/Family are encouraged to report perceived risks to care and to ask questions if they do not understand what they are told or what they should do.
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
--- NOTE | 2020-01-07 04:26 | PCRCNOTE ---
ABG WAS NOT DRAWN IN ED; TO BE DISCONTINUED PER DR FOSS.
[2020-01-07] MEDS: THIAMINE HCL 200 MG/2 ML VIAL 100 MG IV PUSH (04:42)
[2020-01-07] MEDS: LEVOTHYROXINE SODIUM 125 MCG TABLET PO (04:42)
[2020-01-07 05:06] LABS: Hematocrit 36.1 % (37.0-47.0); Hemoglobin 12.4 g/dL (12.0-15.0); Mean Corpuscular HGB Conc 34.3 g/dl (32-36); Mean Corpuscular Hemoglobin 32.7 pg (26-34); Mean Corpuscular Volume 95.3 fl (80-100); Mean Platelet Volume 11.3 fl (7.4-10.4); Platelet Count Result 276 k/mm3 (150-375); Red Blood Count 3.79 M/mm3 (4.2-5.4); Red Cell Distribution Width 15.1 % (11.5-14.5); White Blood Count 15.7 K/mm3 (4.5-10.0)
[2020-01-07 05:21] LABS: INR 1.2; Prothrombin Time 14.7 Seconds (11.1-14.7)
[2020-01-07 05:24] LABS: Alanine Aminotransferase 44 U/L (4-35); Albumin Level 3.7 g/dL (3.5-5.1); Alkaline Phosphatase 70 U/L (38-126); Anion Gap 10 mmol/L (8-16); Aspartate Amino Transferase 66 U/L (14-36); Bilirubin,Total 0.2 mg/dL (0.2-1.3); Blood Urea Nitrogen 22 mg/dL (7-17); Calcium 7.3 mg/dL (8.4-10.2); Carbon Dioxide 21 mmol/L (22-30); Chloride 100 mmol/L (98-107); Estimated CRCL calculation 56 ml/min; Estimated Glomerular Filt Rate > 60; Glucose 273 mg/dL (65-105); Potassium 4.5 mmol/L (3.4-5.0); Sodium 131 mmol/L (137-145)
[2020-01-07] MEDS: diazePAM 5 MG TABLET 10 MG PO ×3 (08:25→17:34)
[2020-01-07] MEDS: FOLIC ACID 1 MG TABLET PO (08:25)
[2020-01-07] MEDS: THIAMINE HCL 100 MG TABLET PO (08:25)
[2020-01-07] MEDS: PREGABALIN 75 MG CAPSULE PO ×2 (08:25→17:33)
[2020-01-07] MEDS: GABAPENTIN 400 MG CAPSULE 800 MG PO ×4 (08:28→21:18)
[2020-01-07] MEDS: OXcarbazepine 150 MG TABLET PO ×2 (08:29→17:33)
[2020-01-07] MEDS: LACTATED RINGERS 1,000 ML 999 ML IV CONT (08:37)
--- NOTE | 2020-01-07 09:16 | WPDCNINT ---
Assessment and Plan Assessment and plan (1) Overdose of salicylate: Code(s): T39.091A - Poisoning by salicylates, accidental (unintentional), initial encounter Status: Acute Assessment and Plan: patient presented with suicidal attempt /behavior Elliot she ingested multiple medication containing salicylic acid - initial salicylic acid levels were elevated, patient started on bicarb infusion - repeat salicylic acid levels have normalized - poison Control has been notified - continue bicarb infusion, will repeat another salicylic acid level later this afternoon (2) Suicidal ideations: Code(s): R45.851 - Suicidal ideations Status: Acute Assessment and Plan: patient presented with suicidal behavior, according the records patient's sister has a video recording with the patient states she was to commit suicide - once patient is medically stable will have crisis management and care coordination evaluate the patient - patient will require to placed in a psych facility (3) Alcoholism: Code(s): F10.20 - Alcohol dependence, uncomplicated Status: Acute Assessment and Plan: patient with history of alcoholism and continues to drink alcohol - continue diazepam - start patient on folic acid and thiamine - will watch for alcohol withdrawal (4) Hypothyroidism: Code(s): E03.9 - Hypothyroidism, unspecified Status: Acute Assessment and Plan: continue levothyroxine (5) Restless leg syndrome: Code(s): G25.81 - Restless legs syndrome Status: Acute Assessment and Plan: continue gabapentin and Lyrica (6) Bipolar disorder: Code(s): F31.9 - Bipolar disorder, unspecified Status: Acute Assessment and Plan: continue diazepam, Trileptal, trazodone (7) DVT prophylaxis: Code(s): Z29.9 - Encounter for prophylactic measures, unspecified Status: Acute Assessment and Plan: DVT prophylaxis: Lovenox SQ Additional Plan discussed with patient updated her with her condition and plan of care. Code status: Full code critical care time spent: 39 minutes Due to a high probability of clinically significant, life threatening deterioration, the patient required my highest level of preparedness to intervene emergently and I personally spent this critical care time directly and personally managing the patient. This critical care time included obtaining a history; examining the patient; pulse oximetry; ordering and review of studies; arranging urgent treatment with development of a management plan; evaluation of patient's response to treatment; frequent reassessment; and discussions with other providers. It was exclusive of separately billable procedures and treating other patients and teaching time. Please see Assessment and Plan section and the rest of the note for further information on patient assessment and treatment Publicity Writer Consult Note Consult date: 01/07/20 Time Seen: 06:59 Reason for consult: salicylate overdose, suicidal ideation, alcohol abuse HPI: Anastasia Card is a 34 year old female with past medical history of bipolar disease, hypothyroidism, restless leg syndrome, peripheral neuropathy, alcohol abuse, recently admitted to [facility] from 12/11/2019 to 12/14/2019 will she was admitted with suicide intent/ideation, alcohol intoxication and poisoning after drinking perfume and lotion. Patient was then transferred to a psychiatric facility from where she probably went home. Patient presented on 01/06/2020 again to the ER with suicidal ideation/ behavior. Patient was discharged home from a psych facility where she was getting alcohol rehab and started drinking again. She stated she did not have adequate alcohol socially started drink hand order packer, also ingested some medication that contained salicylic acid including Neutrogena pore refining toner, clear deep cleaning toner. Mireya cuellar fresh Kb loyd
[2020-01-07] MEDS: ENOXAPARIN 40 MG/0.4 ML SYRINGE SUB-Q (09:58)
[2020-01-07 12:10] LABS: Salicylate 11.4 mg/dL (2-20)
[2020-01-07] MEDS: chlordiazePOXIDE 25 MG CAPSULE PO (12:38)
--- NOTE | 2020-01-07 17:11 | PM.IMPN ---
Progress Note: A&P Assessment and Plan (1) Alcoholism: Code(s): F10.20 - Alcohol dependence, uncomplicated Status: Acute Assessment and Plan: CIWA scores q.4 hours with p.r.n. Ativan. with scheduled Valium 10 t.i.d. Thiamin supplementation (2) Suicidal ideations: Code(s): R45.851 - Suicidal ideations Status: Acute Assessment and Plan: dam attendant in place. Patient will need inpatient psychiatric treatment on discharge (3) Overdose of salicylate: Code(s): T39.091A - Poisoning by salicylates, accidental (unintentional), initial encounter Status: Acute Assessment and Plan: The patient was started on bike carb drip in the ER. and drip decreased today with CO2 rising to normal and salicylate level down to 11 (4) Acute renal failure: Qualifiers: Acute renal failure type: unspecified Qualified Code(s): N17.9 - Acute kidney failure, unspecified Code(s): N17.9 - Acute kidney failure, unspecified Status: Acute Assessment and Plan: Due to volume depletion intoxication. She received 2 L normal saline in the ER. creatinine down to 1.0 today and continue to follow. (5) Hypothyroidism: Code(s): E03.9 - Hypothyroidism, unspecified Status: Acute Assessment and Plan: The patient's hypothyroidism is uncontrolled likely due to noncompliance with medical therapy. TSH is still 18 but was 92 earlier in the month so will continue thyroid replacement as is (6) Bipolar disorder: Code(s): F31.9 - Bipolar disorder, unspecified Status: Acute Assessment and Plan: continue her trazodone ox carbamazepine and Valium (7) Elevated LFTs: Code(s): R79.89 - Other specified abnormal findings of blood chemistry Status: Acute Assessment and Plan: OT greater than ALT all thought to be secondary to ETOH and will follow serially (8) DVT prophylaxis: Code(s): Z29.9 - Encounter for prophylactic measures, unspecified Status: Acute Assessment and Plan: Lovenox Subjective Date/time seen: 01/07/20 17:11 Interval history: date of visit 01/06. 34-year-old alcoholic with bipolar disorder admitted with suicide ideation and ingestion of several alcohol-related products and salicylate. Hydrated with bicarb and feels somewhat better this a.m.. Just recently discharged from psych facility after similar presentation Exam Narrative: Exam Narrative: PHYSICAL EXAM: blood pressure 110/74 pulse is 110 respiration 24 per minute afebrile General: no acute distress, thin body habitus HEENT: mucous membranes are moist, no oral pharyngeal erythema, no scleral icterus, Respiratory: clear to auscultation bilaterally, Cardiovascular: sinus tachycardia, normal S1-S2, no murmur Gastrointestinal: soft, nontender, nondistended, positive bowel sounds Skin: no jaundice, Musculoskeletal: no edema Neurological: alert and oriented, speech is clear Psychiatric: depressed mood, anxious,, insight poor : defer Objective Data Vital Signs Vital Signs: Vital Signs - 24 hr 01/06/20 21:53 01/07/20 00:39 01/07/20 01:40 Temperature Pulse Rate 128 H 115 H 123 H Pulse Rate [Brachial] Respiratory Rate 29 H 20 20 Blood Pressure 109/83 114/70 120/73 Pulse Oximetry 100 100 100 01/07/20 03:59 01/07/20 04:00 01/07/20 04:48 Temperature 37.5 C Pulse Rate 126 H Pulse Rate [Brachial] 122 H 125 H 145 H Respiratory Rate 22 H Blood Pressure 129/88 Pulse Oximetry 100 01/07/20 06:00 01/07/20 08:00 01/07/20 10:00 Temperature 37.3 C Pulse Rate 107 H 111 H 100 Pulse Rate [Brachial] Respiratory Rate 16 18 Blood Pressure 132/64 95/63 L Pulse Oximetry 98 95 01/07/20 12:00 01/07/20 15:57 Temperature 36.9 C 36.3 C L Pulse Rate 106 H 112 H Pulse Rate [Brachial] Respiratory Rate 17 25 H Blood Pressure 122/86 111/75 Pulse Oximetry 98
[2020-01-07] MEDS: traZODone HCL 50 MG TABLET PO (21:18)
[2020-01-08 03:54] VITALS: BP 108/73; PULSE 90; RESP 16; TEMP 36.5; O2SAT 98
[2020-01-08 04:00] VITALS: PULSE 90
[2020-01-08] MEDS: ACETAMINOPHEN 325 MG TABLET 650 MG PO (05:11)
[2020-01-08] MEDS: LEVOTHYROXINE SODIUM 125 MCG TABLET PO (05:12)
[2020-01-08 05:14] LABS: Basophils Percent Auto 0.3 % (0.2-1.2); Eosinophils Percent Auto 0.3 % (0-4.4); Hematocrit 32.6 % (37.0-47.0); Hemoglobin 10.8 g/dL (12.0-15.0); Immature Granulocyte Absolute 0.07 K/mm3 (0.00-0.031); Immature Granulocyte Percent A 0.6 % (0-0.5); Lymphocytes Absolute Auto 2.35 K/mm3 (0.9-3.2); Lymphocytes Percent Auto 20.5 % (18.3-44.2); Mean Corpuscular HGB Conc 33.1 g/dl (32-36); Mean Corpuscular Volume 96.7 fl (80-100); Monocytes Percent Auto 8.3 % (2.6-8.5); Neutrophils Absolute Auto 8.1 K/mm3 (1.3-6.7); Platelet Count Result 213 k/mm3 (150-375); Red Blood Count 3.37 M/mm3 (4.2-5.4); Red Cell Distribution Width 15.1 % (11.5-14.5); White Blood Count 11.5 K/mm3 (4.5-10.0)
[2020-01-08 05:23] LABS: Alanine Aminotransferase 50 U/L (4-35); Albumin Level 3.5 g/dL (3.5-5.1); Alkaline Phosphatase 68 U/L (38-126); Anion Gap 2 mmol/L (8-16); Aspartate Amino Transferase 67 U/L (14-36); Bilirubin,Total 0.6 mg/dL (0.2-1.3); Blood Urea Nitrogen 19 mg/dL (7-17); Calcium 8.1 mg/dL (8.4-10.2); Carbon Dioxide 31 mmol/L (22-30); Chloride 102 mmol/L (98-107); Estimated CRCL calculation 65 ml/min; Estimated Glomerular Filt Rate > 60; Glucose 100 mg/dL (65-105); Potassium 3.1 mmol/L (3.4-5.0); Sodium 135 mmol/L (137-145)
[2020-01-08 08:00] VITALS: BP 112/75; PULSE 83; RESP 16; TEMP 36.9; O2SAT 100
[2020-01-08] MEDS: POTASSIUM CHLORIDE 20 MEQ TABLET 40 MEQ PO ×2 (08:55→17:18)
[2020-01-08] MEDS: diazePAM 5 MG TABLET 10 MG PO ×3 (08:55→17:18)
[2020-01-08] MEDS: ENOXAPARIN 40 MG/0.4 ML SYRINGE SUB-Q (08:56)
[2020-01-08] MEDS: GABAPENTIN 400 MG CAPSULE 800 MG PO ×4 (08:56→21:31)
[2020-01-08] MEDS: OXcarbazepine 150 MG TABLET PO ×2 (08:56→17:18)
[2020-01-08] MEDS: FOLIC ACID 1 MG TABLET PO (08:56)
[2020-01-08] MEDS: THIAMINE HCL 100 MG TABLET PO (08:57)
[2020-01-08] MEDS: PREGABALIN 75 MG CAPSULE PO ×2 (08:57→17:19)
--- NOTE | 2020-01-08 10:54 | PC.NURSE ---
[place] [facility]ISON [facility] CONTACTED. PATIENT'S CASE HAS BEEN CLOSED.
--- NOTE | 2020-01-08 11:34 | PM.IMPN ---
Progress Note: A&P Assessment and Plan (1) Alcoholism: Code(s): F10.20 - Alcohol dependence, uncomplicated Status: Acute Assessment and Plan: CIWA scores q.4 hours with p.r.n. Ativan. with scheduled Valium 10 t.i.d. Thiamin supplementation No signs of any withdrawal (2) Suicidal ideations: Code(s): R45.851 - Suicidal ideations Status: Acute Assessment and Plan: burn out tender lace in place. Patient will need inpatient psychiatric treatment on discharge (3) Overdose of salicylate: Code(s): T39.091A - Poisoning by salicylates, accidental (unintentional), initial encounter Status: Acute Assessment and Plan: The patient was started on bike carb drip in the ER. and drip stopped 01/06 with CO2 rising to normal and salicylate level down to 11 Patient is medically stable for inpatient psych or rehab facility (4) Acute renal failure: Qualifiers: Acute renal failure type: unspecified Qualified Code(s): N17.9 - Acute kidney failure, unspecified Code(s): N17.9 - Acute kidney failure, unspecified Status: Acute Assessment and Plan: Due to volume depletion intoxication. She received 2 L normal saline in the ER. creatinine down to 0.9 today and replace K. (5) Hypothyroidism: Code(s): E03.9 - Hypothyroidism, unspecified Status: Acute Assessment and Plan: The patient's hypothyroidism is uncontrolled likely due to noncompliance with medical therapy. TSH is still 18 but was 92 earlier in the month so will continue thyroid replacement as is (6) Bipolar disorder: Code(s): F31.9 - Bipolar disorder, unspecified Status: Acute Assessment and Plan: continue her trazodone ox carbamazepine and Valium (7) Elevated LFTs: Code(s): R79.89 - Other specified abnormal findings of blood chemistry Status: Acute Assessment and Plan: OT greater than ALT all thought to be secondary to ETOH and no change (8) DVT prophylaxis: Code(s): Z29.9 - Encounter for prophylactic measures, unspecified Status: Acute Assessment and Plan: Lovenox Subjective Date/time seen: 01/08/20 11:34 Interval history: date of visit 01/07. 34-year-old alcoholic with bipolar disorder admitted with suicide ideation and ingestion of several alcohol-related products and salicylate. feels somewhat better this a.m., taking diet well and off IV fluids. Just recently discharged from psych facility after similar presentation Exam Narrative: Exam Narrative: PHYSICAL EXAM: blood pressure 112/74 pulse is 82 respiration 16 per minute afebrile, sating 100% RA General: no acute distress, thin body habitus HEENT: mucous membranes are moist, no oral pharyngeal erythema, no scleral icterus, Respiratory: clear to auscultation bilaterally, Cardiovascular: normal S1-S2, no murmur Gastrointestinal: soft, nontender, nondistended, positive bowel sounds Skin: no jaundice, Musculoskeletal: no edema Neurological: alert and oriented, speech is clear Psychiatric: flat awaiting crisis intervention Objective Data Vital Signs Vital Signs: Vital Signs - 24 hr 01/07/20 12:00 01/07/20 15:57 01/07/20 20:35 Temperature 36.9 C 36.3 C L 37.1 C Pulse Rate 106 H 112 H 88 Pulse Rate [Brachial] Respiratory Rate 17 25 H 18 Blood Pressure 122/86 111/75 108/70 Pulse Oximetry 98 01/07/20 22:00 01/08/20 03:54 01/08/20 04:00 Temperature 36.5 C Pulse Rate 84 90 Pulse Rate [Brachial] 84 90 Respiratory Rate 16 16 Blood Pressure 108/73 Pulse Oximetry 96 98 01/08/20 08:00 Temperature 36.9 C Pulse Rate 83 Pulse Rate [Brachial] Respiratory Rate 16 Blood Pressure 112/75 Pulse Oximetry 100 Intake/Output Intake/Output: Intake & Output 01/05/20 01/06/20 01/07/20 01/08/20 23:59 23:59 23:59 23:59 Intake Total 3400 400 Balance 3400 400 Meds/Results Medic
[2020-01-08 12:00] VITALS: PULSE 85
[2020-01-08 14:11] LABS: SARS-CoV-2 RNA PCR Negative
[2020-01-08 15:11] LABS: SPREG INTERNAL CONTROL Positive; Serum Qual hCG Negative
[2020-01-08 16:00] VITALS: BP 116/76; PULSE 92; RESP 18; TEMP 36.4; O2SAT 100
[2020-01-08 19:30] VITALS: BP 111/92; PULSE 87; RESP 16; TEMP 36.7; O2SAT 100
[2020-01-08] MEDS: traZODone HCL 50 MG TABLET PO (21:31)
[2020-01-09 04:00] VITALS: BP 111/81; PULSE 68; RESP 16; TEMP 36.4; O2SAT 100
[2020-01-09 05:34] LABS: Anion Gap 3 mmol/L (8-16); Blood Urea Nitrogen 12 mg/dL (7-17); Calcium 8.4 mg/dL (8.4-10.2); Carbon Dioxide 28 mmol/L (22-30); Chloride 106 mmol/L (98-107); Estimated CRCL calculation 83 ml/min; Estimated Glomerular Filt Rate > 60; Glucose 90 mg/dL (65-105); Potassium 3.5 mmol/L (3.4-5.0); Sodium 137 mmol/L (137-145)
[2020-01-09] MEDS: ACETAMINOPHEN 325 MG TABLET 650 MG PO (06:39)
[2020-01-09] MEDS: LEVOTHYROXINE SODIUM 125 MCG TABLET PO (06:40)
[2020-01-09 08:00] VITALS: BP 108/82; BP 111/81; PULSE 68; PULSE 81; RESP 16; RESP 18; TEMP 36.8; O2SAT 100
[2020-01-09] MEDS: GABAPENTIN 400 MG CAPSULE 800 MG PO ×2 (08:03→12:41)
[2020-01-09] MEDS: THIAMINE HCL 100 MG TABLET PO (08:03)
[2020-01-09] MEDS: FOLIC ACID 1 MG TABLET PO (08:03)
[2020-01-09] MEDS: OXcarbazepine 150 MG TABLET PO (08:03)
[2020-01-09] MEDS: PREGABALIN 75 MG CAPSULE PO (08:08)
[2020-01-09] MEDS: diazePAM 5 MG TABLET 10 MG PO ×2 (08:08→12:40)
[2020-01-09 11:54] VITALS: PULSE 68
--- NOTE | 2020-01-14 10:17 | PM.TDS ---
Transfer Discharge Sum: Prov Provider Date of admission: 01/07/20 08:56 Primary care physician: Talha Blount, Admitting clinician: Tammy Gonzalez DO Consults: 01/07/20 02:18 Consult to Physician Routine Comment: Consulting Provider: Sen Marcus banquet server on call/MD group to consult: jacob Reason for consultation: salicylate overdose Has provider been notified: Yes 01/08/20 Care Coordination Consult Routine Comment: Reason for Consult:: Crisis Intervention DS: Admitting Diagnosis Admitting Diagnosis Admitting Diagnosis: Salicylate overdose, suicidal ideation DS: Discharge Diagnosis Discharge Diagnosis (1) Alcoholism: Code(s): F10.20 - Alcohol dependence, uncomplicated Status: Acute Assessment and Plan: CIWA scores q.4 hours with p.r.n. Ativan. with scheduled Valium 10 t.i.d. Thiamin supplementation No signs of any withdrawal during her hospitalization (2) Suicidal ideations: Code(s): R45.851 - Suicidal ideations Status: Acute Assessment and Plan: public health training assistant was in place. Patient to inpatient psychiatric treatment on discharge (3) Overdose of salicylate: Code(s): T39.091A - Poisoning by salicylates, accidental (unintentional), initial encounter Status: Acute Assessment and Plan: The patient was started on bike carb drip in the ER. and drip stopped 01/06 with CO2 rising to normal and salicylate level down to 11 2 days prior to d/c Patient was medically stable for inpatient psych or rehab facility (4) Acute renal failure: Qualifiers: Acute renal failure type: unspecified Qualified Code(s): N17.9 - Acute kidney failure, unspecified Code(s): N17.9 - Acute kidney failure, unspecified Status: Acute Assessment and Plan: Due to volume depletion intoxication. She received 2 L normal saline in the ER. creatinine down to 0.9 (5) Hypothyroidism: Code(s): E03.9 - Hypothyroidism, unspecified Status: Acute Assessment and Plan: The patient's hypothyroidism is uncontrolled likely due to noncompliance with medical therapy. TSH is still 18 but was 92 earlier in the month so will continue thyroid replacement as is (6) Bipolar disorder: Code(s): F31.9 - Bipolar disorder, unspecified Status: Acute Assessment and Plan: continue her trazodone ox carbamazepine and Valium (7) Elevated LFTs: Code(s): R79.89 - Other specified abnormal findings of blood chemistry Status: Acute Assessment and Plan: OT greater than ALT all thought to be secondary to ETOH and no change and slowly falling Transfer Discharge Sum: Med Medications Active and Home Medications: Home Medications diazepam 10 mg PO TID 12/11/19 [History Confirmed 01/07/20] gabapentin 800 mg PO QID 12/11/19 [History Confirmed 01/07/20] pregabalin 75 mg PO BID 12/11/19 [History Confirmed 01/07/20] oxcarbazepine 150 mg PO BID 01/07/20 [History Confirmed 01/07/20] trazodone 50 mg PO HS 01/07/20 [History Confirmed 01/07/20] levothyroxine [Synthroid] 125 mcg PO DAILY@0630 #30 tablet 01/09/20 [Rx] thiamine HCl (vitamin B1) [Vitamin B-1] 100 mg PO QAM #30 tablet 01/09/20 [Rx] Transfer Discharge Sum: Hosp Hospital Course Hospital course: Anastasia Card is a 34 year old female admitted after ingesting unknown quantity of aspirin products and alcohol containing products such as hand Vehicle Dynamics Engineer and lotions. She was treated with IV bicarbonate and her salicylate level dropped from 25-11. She was seen by crisis intervention and was felt she would best be served by inpatient treatment. She has the alcoholism complicated by the bipolar disorder. She was medically stable and transferred to inpatient treatment facility Time Spent with Patient Time attestation: Total time spent providing and/or coordinating transfer services:35 minutes Exam Narrati
== END 2020-01-09 13:00 | DRG 918 ==
LOC: ANHED 22:26 → ANHICU 01-07 02:40
PROVIDERS: Family Medicine; Internal Medicine; Admitting Provider Internal Medicine; Emergency Provider Emergency Medicine; PCP Internal Medicine; Visit Provider Internal Medicine
DX: T39.092A Poisoning by salicylates, intentional self-harm, initial encounter (principal); R45.851 Suicidal ideations; N17.9 Acute kidney failure, unspecified; Z20.828 Contact with and (suspected) exposure to other viral communicable diseases; F10.20 Alcohol dependence, uncomplicated; Y90.6 Blood alcohol level of 120-199 mg/100 ml; G89.29 Other chronic pain; F31.9 Bipolar disorder, unspecified; F41.8 Other specified anxiety disorders; G25.81 Restless legs syndrome; G62.9 Polyneuropathy, unspecified; E89.0 Postprocedural hypothyroidism; Z90.710 Acquired absence of both cervix and uterus
CPT/HCPCS: 36415; 51701; 80048; 80053; 80307; 81001; 81025; 84443; 84703; 85025; 85027; 85610; 85730; 87635; 93005; 96361; 96374; 96375; 99285; A9270; C9803; G0378; J1650; J2060; J3411; J7030; J7070; J7120; U0003

== ENCOUNTER 2022-08-22 21:33 | Emergency (ER) | payer OTHER, SELFPAY ==
[2022-08-22 21:33] VITALS: PULSE 89; RESP 18; O2SAT 99
[2022-08-22 21:54] LABS: Basophils Absolute Auto 0.1 K/mm3 (0.0-0.1); Basophils Percent Auto 0.3 % (0.2-1.2); Hematocrit 42.8 % (37.0-47.0); Hemoglobin 13.8 g/dL (12.0-15.0); Immature Granulocyte Percent A 0.6 % (0-0.5); Lymphocytes Absolute Auto 1.35 K/mm3 (0.9-3.2); Lymphocytes Percent Auto 7.6 % (18.3-44.2); Mean Corpuscular HGB Conc 32.2 g/dl (32-36); Mean Corpuscular Hemoglobin 31.4 pg (26-34); Mean Corpuscular Volume 97.3 fl (80-100); Mean Platelet Volume 9.9 fl (7.4-10.4); Monocytes Absolute Auto 1.5 K/mm3 (0.1-0.6); Monocytes Percent Auto 8.3 % (2.6-8.5); Neutrophils Absolute Auto 14.7 K/mm3 (1.3-6.7); Neutrophils Percent Auto 83.2 % (45.5-73.1); Platelet Count Result 441 k/mm3 (150-375); Red Cell Distribution Width 13.5 % (11.5-14.5); White Blood Count 17.7 K/mm3 (4.5-10.0)
[2022-08-22] MEDS: PROCHLORPERAZINE EDISYLATE 10 MG/2 ML VIAL IV PUSH (22:00)
[2022-08-22] MEDS: SODIUM CHLORIDE 0.9% IV 1,000 ML 999 ML IV CONT (22:01)
[2022-08-22 22:11] LABS: Ethanol 187 mg/dL (<10)
[2022-08-22] MEDS: ONDANSETRON INJ 4 MG/2 ML VIAL IV PUSH (22:16)
--- NOTE | 2022-08-22 22:31 | ED.GENADULT ---
HPI - General Adult General Chief complaint: Alcohol Stated complaint: nausea/vomiting Time Seen by Provider: 08/22/22 21:36 History of Present Illness HPI narrative: Patient 37-year-old female who presents emergency department with chief complaint of nausea and vomiting. Patient reports that she did have some gastric irritation from the drinking and reports that she is not having any thoughts of harming herself or thoughts of harming others. Related Data Home Medications Medication Instructions Recorded Confirmed diazepam 10 mg tablet 10 mg PO TID 12/11/19 01/07/20 gabapentin 800 mg tablet 800 mg PO QID 12/11/19 01/07/20 pregabalin 75 mg capsule 75 mg PO BID 12/11/19 01/07/20 oxcarbazepine 150 mg tablet 150 mg PO BID 01/07/20 01/07/20 trazodone 50 mg tablet 50 mg PO HS 01/07/20 01/07/20 Allergies Allergy/AdvReac Type Severity Reaction Status Date / Time No Known Allergies Allergy Verified 12/10/19 23:58 Review of Systems Review of Systems: A 10 system review of systems was completed on the patient and is negative except for what is stated in the HPI. Nursing and ancillary documentation was reviewed. 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 Restless leg syndrome Surgical History Surgical History H/O: hysterectomy History of thyroidectomy 2010 Family History Family History Daughter Acute myocardial infarction Social History Social History Smoking status: Never smoker Alcohol intake: current Alcohol use details: Patient is currently binge drinking. Substance use: never Living arrangements: alone Gender identity (if verbalized by the patient): Female Spiritual care concerns: No Exam Narrative: GENERAL: Well-appearing, well-nourished, patient is actively vomiting in the room. HEAD: Normocephalic, atraumatic. EYES: PERRLA and EOMI. ENT: Nares clear, no rhinorrhea or epistaxis. Mucous membranes moist. NECK: Supple. CHEST: Clear to auscultation. No respiratory distress. HEART: Regular rate and rhythm. No murmur heard. Normal peripheral pulses. ABDOMEN: Soft, nontender, nondistended, normal active bowel sounds. EXTREMITIES: Normal range of motion. No edema. SKIN: Warm, dry, no rash. NEURO: No focal deficits. Alert and oriented x3. Patient is able to ambulate without difficulty showing no signs of unsteady gait PSYCH: Normal mood and affect. Course Course Emergency Course: Differential diagnosis includes gastroenteritis, acute alcohol intoxication, Laboratory studies were obtained which showed a blood alcohol level of 187 white blood cell count was 17.7 The patient received a liter of normal saline Compazine and Zofran in the emergency department and is feeling much better and would like to go home Patient ambulated in the emergency department without difficulty and states that she will Uber back home Vital Signs Vital signs: Vital Signs Pulse Rate 89 08/22/22 21:33 Respiratory Rate 18 08/22/22 21:33 Pulse Oximetry 99 08/22/22 21:33 Oxygen Delivery Room Air 08/22/22 21:33 Pulse Rate 89 08/22/22 21:33 Respiratory Rate 18 08/22/22 21:33 Pulse Oximetry 99 08/22/22 21:33 Oxygen Delivery Room Air 08/22/22 21:33 Medical Decision Making Vital Signs Vital Signs: Vital Signs Pulse Rate 89 08/22/22 21:33 Respiratory Rate 18 08/22/22 21:33 Pulse Oximetry 99 08/22/22 21:33 Oxygen Delivery Room Air 08/22/22 21:33 Pulse Rate 89 08/22/22 21:33 Respiratory Rate 18 08/22/22 21:33 Pulse Oximetry 9
[2022-08-22 22:37] LABS: Alanine Aminotransferase 129 U/L (6-35); Albumin Level 5.1 g/dL (3.5-5.1); Alkaline Phosphatase 111 U/L (38-126); Anion Gap 29 mmol/L (8-16); Aspartate Amino Transferase 242 U/L (14-36); Bilirubin,Total 0.6 mg/dL (0.2-1.3); Blood Urea Nitrogen 17 mg/dL (7-17); Calcium 8.5 mg/dL (8.4-10.2); Carbon Dioxide 8 mmol/L (22-30); Chloride 106 mmol/L (98-107); Estimated Glomerular Filt Rate 55; Glucose 79 mg/dL (65-110); Lipase 37 U/L (23-300); Potassium 4.8 mmol/L (3.4-5.0); Sodium 143 mmol/L (137-145)
[2022-08-22 22:55] VITALS: BP 111/69; PULSE 69; RESP 18; TEMP 36.6; O2SAT 99
--- NOTE | 2022-09-17 14:16 | PC.NURSE ---
LATE ENTRY This note is being entered to document information to the patient's record. The following information was omitted on [08/22/22], by [Erick Padilla RN]. NS stop time 2300.
== END 2022-08-22 22:57 | disposition home or self-care (01) ==
PROVIDERS: Emergency Provider Emergency Medicine; PCP Internal Medicine
DX: R11.2 Nausea with vomiting, unspecified (principal); F10.229 Alcohol dependence with intoxication, unspecified; Y90.6 Blood alcohol level of 120-199 mg/100 ml; G62.9 Polyneuropathy, unspecified; G25.81 Restless legs syndrome; F31.9 Bipolar disorder, unspecified; F41.9 Anxiety disorder, unspecified; E89.0 Postprocedural hypothyroidism; Z90.710 Acquired absence of both cervix and uterus
CPT/HCPCS: 36415; 80053; 80307; 83690; 85025; 96361; 96374; 96375; 99284; J0780; J2405; J7030

== ENCOUNTER 2023-05-04 08:06 | Emergency (ER) | payer OTHER, SELFPAY ==
[2023-05-04 08:03] VITALS: BP 114/72; PULSE 81; RESP 14; TEMP 36.7; O2SAT 100
[2023-05-04 08:16] VITALS: PULSE 90; RESP 20; O2SAT 97
[2023-05-04 08:17] VITALS: BP 114/85; PULSE 81; RESP 12; O2SAT 99
--- NOTE | 2023-05-04 08:20 | ECG_ITS ---
Measurements Intervals [place] Rate: 77 P: 74 DE: 176 QRS: 90 QRSD: 94 T: 31 QT: 356 QTc: 405 Interpretive Statements SINUS RHYTHM NONSPECIFIC T-WAVE ABNORMALITY COMPARED TO ECG 01/06/2020 21:58:39 THE RATE IS SLOWER T-WAVE ABNORMALITY NOW PRESENT Electronically Signed On 05-04-2023 9:11:39 WARD SUPERVISOR by Debbie Jackson M.D.
[2023-05-04 08:30] VITALS: PULSE 74; RESP 16
[2023-05-04 08:31] VITALS: BP 107/76; PULSE 80; RESP 15
[2023-05-04] MEDS: PROMETHAZINE HCL 25 MG/ML AMPUL 12.5 MG IV PUSH (08:43)
[2023-05-04] MEDS: LACTATED RINGERS 1,000 ML 999 ML IV CONT (08:43)
[2023-05-04 08:47] LABS: Basophils Percent Auto 0.6 % (0.2-1.2); Eosinophils Percent Auto 0.2 % (0-4.4); Hemoglobin 13.5 g/dL (12.0-15.0); Immature Granulocyte Absolute 0.02 K/mm3 (0.00-0.031); Immature Granulocyte Percent A 0.3 % (0-0.5); Lymphocytes Absolute Auto 1.37 K/mm3 (0.9-3.2); Lymphocytes Percent Auto 21.8 % (18.3-44.2); Mean Corpuscular HGB Conc 32.9 g/dl (32-36); Mean Corpuscular Hemoglobin 30.6 pg (26-34); Mean Platelet Volume 10.3 fl (7.4-10.4); Monocytes Absolute Auto 0.4 K/mm3 (0.1-0.6); Monocytes Percent Auto 5.6 % (2.6-8.5); Neutrophils Absolute Auto 4.5 K/mm3 (1.3-6.7); Neutrophils Percent Auto 71.5 % (45.5-73.1); Platelet Count Result 322 k/mm3 (150-375); Red Blood Count 4.41 M/mm3 (4.2-5.4); Red Cell Distribution Width 12.6 % (11.5-14.5); White Blood Count 6.3 K/mm3 (4.5-10.0)
--- NOTE | 2023-05-04 08:58 | PC.NURSE ---
called [place] poison control. Spoke with Breana - explained what pt states she took. Pt told Dr Lai that she is not suicidal.
[2023-05-04 09:02] LABS: Alanine Aminotransferase 21 U/L (6-35); Albumin Level 4.8 g/dL (3.5-5.1); Alkaline Phosphatase 90 U/L (38-126); Anion Gap 12 mmol/L (8-16); Aspartate Amino Transferase 40 U/L (14-36); Bilirubin,Total 0.5 mg/dL (0.2-1.3); Blood Urea Nitrogen 11 mg/dL (7-17); Calcium 8.8 mg/dL (8.4-10.2); Carbon Dioxide 33 mmol/L (22-30); Chloride 96 mmol/L (98-107); Estimated CRCL calculation 60 ml/min; Estimated Glomerular Filt Rate > 60; Glucose 93 mg/dL (65-110); Lipase 613 U/L (23-300); Magnesium 1.8 mg/dL (1.6-2.3); Potassium 3.4 mmol/L (3.4-5.0); Sodium 141 mmol/L (137-145)
[2023-05-04 09:03] LABS: Acetaminophen < 10 ug/mL (10-30); Ethanol 240 mg/dL (<10); Salicylate < 1.0 mg/dL (2-20)
--- NOTE | 2023-05-04 09:20 | PC.NURSE ---
Pt began refusing all care, MD aware.
--- NOTE | 2023-05-04 17:37 | ED.GENADULT ---
HPI - General Adult General Chief complaint: Alcohol Stated complaint: N/V - ETOH Time Seen by Provider: 05/04/23 08:10 Source: patient, EMS, RN notes reviewed and old records reviewed Mode of arrival: EMS Limitations: no limitations History of Present Illness HPI narrative: This is a 37 year old female with history of alcoholism who presents for evaluation of nausea and vomiting. PAtient states that her boyfriend broke up with her on Saturday. She has been binging alcohol for the past 3 days. She states she had been sober for 2 months and she started drinking after he broke up with her. She reports she developed nausea and vomiting. She states she took unknown amount of zofran but she is still having nausea. She reports she takes acamprosate for alcoholism. She thinks she took unknown amount last night. She denies chest pain, headache, shortness of breath abdominal pain. She states she is not homicidal or suicidal. She is not sure why called 911. Related Data Home Medications Medication Instructions Recorded Confirmed diazepam 10 mg tablet 10 mg PO TID 12/11/19 01/07/20 gabapentin 800 mg tablet 800 mg PO QID 12/11/19 01/07/20 pregabalin 75 mg capsule 75 mg PO BID 12/11/19 01/07/20 oxcarbazepine 150 mg tablet 150 mg PO BID 01/07/20 01/07/20 trazodone 50 mg tablet 50 mg PO HS 01/07/20 01/07/20 Allergies Allergy/AdvReac Type Severity Reaction Status Date / Time No Known Allergies Allergy Verified 05/04/23 08:08 Review of Systems Constitutional: Constitutional: Denies weakness Cardiovascular: Cardiovascular: Denies syncope, Denies rapid heart rate, Denies irregular heart rhythm, Denies leg edema and Denies dyspnea Respiratory: Respiratory: Denies chest congestion, Denies hemoptysis, Denies excessive phlegm production and Denies dyspnea Gastrointestinal: Gastrointestinal: Denies abdominal pain, Denies hematochezia, Denies diarrhea, Reports nausea and Reports vomiting Genitourinary: Genitourinary: Denies hematuria and Denies dysuria Musculoskeletal: Musculoskeletal: Denies joint swelling, Denies loss of height and Denies muscle weakness Neurologic: Denies syncope, Denies focal weakness and Denies weakness PMFSH Past Medical History Medical History Alcoholism Anxiety Bipolar disorder Depression Hypothyroidism associated with surgical procedure 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 Restless leg syndrome Surgical History Surgical History H/O: hysterectomy History of thyroidectomy 2010 Family History Family History Daughter Acute myocardial infarction Social History Social History Smoking status: Never smoker Alcohol intake: current Alcohol use details: Patient is currently binge drinking. Substance use: never Living arrangements: alone Gender identity (if verbalized by the patient): Female Spiritual care concerns: No Exam Const: General: no acute distress and alert Nutritional Appearance: well nourished Orientation/consciousness: patient oriented x3 HENMT: Head: normal to inspection Mouth: Yes Normal oral and palatal mucosa present, Yes lip normal and Yes moist mucous membranes Throat: posterior oropharynx normal Eyes: Pupils: Equal, round and reactive pupils present EOM: EOMs intact bilaterally Neck: Neck: normal visual inspection Chest: Chest palpation & inspection: normal inspection of the chest Resp: Effort & Inspection: normal respiratory effort Auscultation: clear to auscultation bilaterally Cardio: Rate: regular rate Rhythm: regular rhythm GI: GI Palp: Yes Soft to palpation, No Tenderness to palpation present (GI), No Guarding due to palpation present (GI) and No Rigid due to palpation Auscultatio
== END 2023-05-04 09:22 | disposition left against medical advice (07) ==
LOC: ANHED 08:54
PROVIDERS: Emergency Provider General Practice; PCP Internal Medicine
DX: F10.20 Alcohol dependence, uncomplicated (principal); Y90.8 Blood alcohol level of 240 mg/100 ml or more; F41.9 Anxiety disorder, unspecified; F32.A Depression, unspecified; E89.0 Postprocedural hypothyroidism; G25.81 Restless legs syndrome
CPT/HCPCS: 36415; 80053; 80307; 83690; 83735; 85025; 93005; 96361; 96374; 99284; J2550; J7120

== ENCOUNTER 2024-02-09 17:36 | Emergency (ER) | payer OTHER, SELFPAY ==
[2024-02-09] VITALS (11 sets, daily range): BP systolic 114–122; BP diastolic 80–88; PULSE 72–114; RESP 11–23; TEMP 36.2; O2SAT 97–100
--- NOTE | ~2024-02-09 | CT_ITS ---
CT of the Abdomen and Pelvis: Indication: Abdominal pain Technique: 2.5 mm axial scans were obtained through the abdomen and pelvis following intravenous adm inistration of 100 cc of Omnipaque 350. Dose reduction technique was used on this scan by utilizing a utomated exposure control and iterative reconstruction technique. The dose-length product (DLP) was 2 30.06 mGy-cm. Findings: Scans through the lung bases are unremarkable. The liver, spleen, pancreas, gallbladder, adrenals and kidneys are within normal limits. No evidence of aortic aneurysm. No lymphadenopathy. No bowel obstruction or bowel wall thickening. Prominent stool suggests constipation. 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 Images through the pelvis were performed. Urinary bladder unremarkable. No pelvic mass seen. No ascit es. Impression: No acute abnormality. Congenital malrotation of bowel and constipation. Reviewed, dictated and finalized at [facility]. Impression: No acute abnormality. Congenital malrotation of bowel and constipation.
[2024-02-09] MEDS: SODIUM CHLORIDE 0.9% IV 1,000 ML 999 ML IV CONT ×2 (20:12→21:12)
[2024-02-09] MEDS: THIAMINE HCL 200 MG/2 ML VIAL 100 MG IV PUSH (20:13)
--- NOTE | 2024-02-09 20:20 | ECG_ITS ---
Test Date: 2024-02-09 20:36:09 Measurements Intervals [place] Rate: 80 P: 0 AK: 0 QRS: 78 QRSD: 95 T: -28 QT: 356 QTc: 411 Interpretive Statements SINUS RHYTHM DELAYED PRECORDIAL R/S TRANSITION ST-T WAVE ABNORMALITY IN INFERIOR LEADS- CONSIDER ISCHEMIA BASELINE ARTIFACT- I, II, III, AVR, AVL, AVF, V1-V6 ABNORMAL ECG No previous ECG available for comparison Electronically Signed On 02-10-2024 06:27:11 CDT by Kristian Terrell D.O.
--- NOTE | 2024-02-09 20:21 | ED.ALCOHOL ---
HPI - Alcohol General Chief Complaint: Alcohol <DERECK Brizuela Last Filed: 02/10/24 03:20> Stated Complaint: I'm an alcoholic and I need help <DERECK Brizuela Last Filed: 02/10/24 03:20> Time Seen by Provider: 02/09/24 19:57 <DERECK Brizuela Last Filed: 02/10/24 03:20> Source: patient and old records reviewed <DERECK Brizuela Last Filed: 02/10/24 03:20> Mode of arrival: ambulatory <DERECK Brizuela Filed: 02/10/24 03:20> Limitations: no limitations <DERECK Brizuela Last Filed: 02/10/24 03:20> History of Present Illness HPI narrative: Patient is a 38 y/o female, with PMH of alcohol use disorder, who presents to the ED with c/o alcohol abuse and withdrawal. Patient reports she is a daily drinker. She often binge drinks. She has been seen in our ED here several times for alcohol abuse. She drinks at least 8 airplane bottles of liquor per day. She last drank this morning. She then began having withdrawal symptoms, including diaphoresis, shakiness, nausea, vomiting this afternoon. She then drank approximately 3/4 of a 16 oz bottle of rubbing alcohol to try to control the withdrawal symptoms. These occurred around noon. She states she did not drink this in an attempt to harm herself. Denies SI/HI. She does report having intermittent vomiting over the last few days as well as diffuse abdominal pain. Denies fevers. Denies diarrhea, constipation. <DERECK Brizuela Last Filed: 02/10/24 03:20> Related Data Home Medications: Home Medications Medication Instructions Recorded Confirmed gabapentin 800 mg tablet 800 mg PO QID 12/11/19 09/11/23 citalopram 10 mg tablet 10 mg PO DAILY 09/11/23 09/11/23 quetiapine 25 mg tablet 25 mg PO QHS 09/11/23 09/11/23 <Olivia Ortiz PA-C - Last Filed: 02/10/24 03:20> Allergies/Adverse Reactions: Allergies Allergy/AdvReac Type Severity Reaction Status Date / Time No Known Allergies Allergy Verified 02/09/24 17:37 <Olivia Ortiz PA-C - Last Filed: 02/10/24 03:20> Review of Systems Review of Systems: All systems reviewed & are unremarkable except as noted in HPI. 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 Restless leg syndrome <Olivia Ortiz PA-C - Last Filed: 02/10/24 03:20> Surgical History Surgical History: Surgical History H/O: hysterectomy History of thyroidectomy 2010 <Olivia Ortiz PA-C - Last Filed: 02/10/24 03:20> Family History Family History: Family History Daughter Acute myocardial infarction <Olivia Ortiz PA-C - Last Filed: 02/10/24 03:20> Social History Social History: Social History Smoking status: Never smoker Tobacco type: e-cigarettes/vaping Alcohol intake: current Alcohol use details: Patient is currently binge drinking. Substance use: current Substance use type: marijuana Current Housing: Decline to Answer Concerned About Future Housing: Decline to Answer Difficulty Paying Gas/Electric Bills: Decline to Answer Difficulty Paying for Meds: Decline to Answer Currently Unemployed: Decline to Answer Education: Decline to Answer Difficulty w/ Childcare or Family Care: Decline to Answer Living arrangeme
[2024-02-09 20:38] LABS: Basophils Absolute Auto 0.1 K/mm3 (0.0-0.1); Eosinophils Percent Auto 0.2 % (0-4.4); Hematocrit 37.3 % (37.0-47.0); Hemoglobin 12.4 g/dL (12.0-15.0); Immature Granulocyte Absolute 0.03 K/mm3 (0.00-0.031); Immature Granulocyte Percent A 0.6 % (0-0.5); Lymphocytes Absolute Auto 1.19 K/mm3 (0.9-3.2); Lymphocytes Percent Auto 23.7 % (18.3-44.2); Mean Corpuscular HGB Conc 33.2 g/dl (32-36); Mean Corpuscular Hemoglobin 32.3 pg (26-34); Mean Corpuscular Volume 97.1 fl (80-100); Monocytes Absolute Auto 0.5 K/mm3 (0.1-0.6); Monocytes Percent Auto 8.9 % (2.6-8.5); Neutrophils Absolute Auto 3.3 K/mm3 (1.3-6.7); Neutrophils Percent Auto 65.6 % (45.5-73.1); Platelet Count Result 295 k/mm3 (150-375); Red Blood Count 3.84 M/mm3 (4.2-5.4); Red Cell Distribution Width 14.7 % (11.5-14.5)
[2024-02-09 20:46] LABS: Lipase 198 U/L (23-300)
[2024-02-09 20:48] LABS: Ethanol < 10 mg/dL (<10)
[2024-02-09 20:49] LABS: Alanine Aminotransferase 13 U/L (6-35); Albumin Level 4.3 g/dL (3.5-5.1); Alkaline Phosphatase 100 U/L (38-126); Anion Gap 12 mmol/L (4-12); Aspartate Amino Transferase 31 U/L (14-36); Bilirubin,Total 0.3 mg/dL (0.2-1.3); Blood Urea Nitrogen 9 mg/dL (7-17); Calcium 8.1 mg/dL (8.4-10.2); Carbon Dioxide 25 mmol/L (22-30); Chloride 101 mmol/L (98-107); Estimated CRCL calculation 65 ml/min; Estimated Glomerular Filt Rate > 60; Glucose 104 mg/dL (65-110); Magnesium 1.7 mg/dL (1.6-2.3); Potassium 3.1 mmol/L (3.4-5.0); Sodium 138 mmol/L (137-145)
[2024-02-09 20:50] LABS: Prothrombin Time 13.3 Seconds (11.1-14.7)
--- NOTE | 2024-02-09 21:01 | PC.NURSE ---
2050 Called poison control, spoke with Leila, pharmacist. She states to monitor patients VS and for PROGRAMMER OR ANALYST depression, and with the alcohol the patient drank, GI upset is common. She states can cause ulcers but less likely. She states to monitor for ketosis. Leila states she will fax over all the information. SHAINA notified.
[2024-02-09] MEDS: ONDANSETRON INJ 4 MG/2 ML VIAL IV PUSH (21:12)
[2024-02-09] MEDS: PANTOPRAZOLE SODIUM IV 40 MG VIAL IV PUSH (21:12)
[2024-02-09] MEDS: KCL 20 MEQ/SW 100 ML 100 ML 50 MEQ IVPB (21:20)
--- NOTE | 2024-02-09 21:26 | PC.NURSE ---
Patient stating can I have something for the sweats, the shaking, I don't want to feel this way anymore, I feel awful. PA notified. Orders being placed.
[2024-02-09] MEDS: LORazepam INJ (*CRX) 2 MG/ML VIAL 1 MG IV PUSH (21:30)
--- NOTE | 2024-02-09 21:34 | PC.NURSE ---
Called lab to add on beta hydrox, spoke with Bernard.
[2024-02-09 22:42] LABS: SPREG INTERNAL CONTROL Positive; Serum Qual hCG Negative
--- NOTE | 2024-02-09 23:07 | PC.NURSE ---
Patient refusing to wear monitoring equipment.
--- NOTE | 2024-02-09 23:13 | PC.NURSE ---
PA speaking with poison control at this time.
[2024-02-09 23:18] LABS: Add Urine Microscopic? NO; Appearance Urine Clear (Clear); Bilirubin Urine Negative (Negative); Blood Urine Negative (Negative); Color Urine Yellow (Yellow); Glucose Urine UA Negative (Negative); Ketones Urine 2+ mg/dL (Negative); Leukocyte Esterase Ur Negative LEU/UL (Negative); Nitrate Urine Negative (Negative); Protein Urine Negative (Negative); Specific Grav Ur 1.025 (1.001-1.035); Urobilinogen Urine 0.2 mg/dL (<2.0); pH Urine 7.5 (5.0-9.0)
[2024-02-09 23:35] LABS: Amphetamine Screen Urine Negative (Negative); Barbiturate Screen Urine Negative (Negative); Benzodiazepines Screen Urine Negative (Negative); Cannabinoid Screen Urine Positive (Negative); Cocaine Screen Urine Negative (Negative); Methadone Screen Urine Negative (Negative); Opiate Screen Urine Negative (Negative); Phencyclidine Screen Urine Negative (Negative)
[2024-02-09] MEDS: PHENobarbitaL sodium (*CRX) 130 MG/ML VIAL 260 MG IV PUSH (23:44)
[2024-02-10] VITALS (11 sets, daily range): BP systolic 127; BP diastolic 85; PULSE 76–92; RESP 17–20; O2SAT 95–99
[2024-02-10 00:41] LABS: Glucose Point of Care 111 mg/dl (65-105)
--- NOTE | 2024-02-10 02:08 | PC.NURSE ---
Patient is fidgeting in the bed, stating help me, help me. This RN asked patient what is wrong, patient states I want to go home, but I don't want to feel like this, can I talk to the doctor. Patient VSLaura. SHAINA notified.
[2024-02-10] MEDS: diazePAM INJ (*CRX) 10 MG/2 ML SYRINGE 2.5 MG IV PUSH (02:14)
[2024-02-10] MEDS: PROCHLORPERAZINE EDISYLATE 10 MG/2 ML VIAL IV PUSH (03:35)
--- NOTE | 2024-02-10 05:20 | PC.NURSE ---
Patient ambulated to the nursing station with steady unassisted gait. Patient requesting to leave. ERP spoke with patient.
== END 2024-02-10 05:35 | disposition home or self-care (01) ==
PROVIDERS: Emergency Provider Physician Assistant; PCP Internal Medicine
DX: F10.130 Alcohol abuse with withdrawal, uncomplicated (principal); T51.2X1A Toxic effect of 2-Propanol, accidental (unintentional), initial encounter; F31.9 Bipolar disorder, unspecified; F41.8 Other specified anxiety disorders; E03.9 Hypothyroidism, unspecified
CPT/HCPCS: 36415; 74177; 80053; 80307; 81003; 82010; 82948; 83690; 83735; 84703; 85025; 85610; 85730; 93005; 96361; 96365; 96366; 96375; 99284; J0780; J2060; J2405; J2470; J2560; J3360; J3411; J3480; J7030; Q9967